=== PATIENT | female | born 1970 | race Caucasian/White ===

== ENCOUNTER 2017-07-25 08:22 | Emergency (ER) | payer SELFPAY ==
[~2017-07-25] VITALS: Ht 162.6 cm; Wt 94.2 kg
[~2017-07-25 08:22] MED LIST: INHALER; LORC10TA PO; NABU500T PO
[2017-07-25 08:27] VITALS: BP 165/69; PULSE 88; RESP 16; TEMP 98; O2SAT 96
[2017-07-25] MEDS ORDERED: IBUP200C PO (08:37)
[2017-07-25] MEDS ORDERED: PRED20 PO (08:46)
[2017-07-25] MEDS ORDERED: AMOX500T PO (08:46)
--- NOTE | 2017-07-25 08:46 | PD ---
HPI Chief Complaint: Cold / Flu Symptoms Time Seen by Provider: 08:34 Travel History International Travel<30 days: No Contact w/Intl Traveler<30days: No Traveled to known affect area: No History of Present Illness HPI 46-year-old female complains of sore throat, hoarseness, productive cough. Patient states that the symptoms started about 2 weeks ago. Patient states that she losing her voice intermittently for the past 2 weeks. Patient states that the voice loss is worse for the past several days. Patient denies any headache. Patient denies any chest pain or shortness of breath. Patient has history of asthma and has been using inhaler and nebulizer at home. Patient is a smoker. Patient states that coughing is intermittent and productive. Patient denies abdominal pain. Patient denies any nausea vomiting diarrhea. PFSH Past Medical History Medical History: Denies Significant Hx Asthma: Yes Diminished Hearing: No Influenza Vaccination: No ?: Not Menopausal: Yes Past Surgical History Surgical History: No Previous Surgery Social History Alcohol Use: No Tobacco Use: Yes (/2 PPD) Substance Use: No Allergies-Medications (Allergen,Severity, Reaction): Coded Allergies: No Known Allergies (Verified Adverse Reaction, Unknown, 07/25/17) Reported Meds & Prescriptions Reported Meds & Active Scripts Active Reported Ibuprofen 200 Mg Cap 200 Mg PO Q6H PRN Review of Systems General / Constitutional: No: Fever Eyes: No: Visual changes HENT: Positive: Sore Throat, No: Headaches Cardiovascular: No: Chest Pain or Discomfort Respiratory: Positive: Cough, No: Shortness of Breath Gastrointestinal: No: Abdominal Pain Genitourinary: No: Dysuria Musculoskeletal: No: Pain Skin: No Rash Neurologic: No: Weakness Psychiatric: No: Depression Endocrine: No: Polydipsia Hematologic/Lymphatic: No: Easy Bruising Physical Exam Narrative GENERAL: Well-nourished, well-developed patient. SKIN: Focused skin assessment warm/dry. HEAD: Normocephalic. EYES: No scleral icterus. No injection or drainage. TM: Clear. Throat: Mild erythematous. NECK: Supple, trachea midline. No JVD . Patient has mild anterior cervical lymphadenopathy. No mass noted. CARDIOVASCULAR: Regular rate and rhythm without murmurs, gallops, or rubs. RESPIRATORY: Breath sounds equal bilaterally. No accessory muscle use. Patient has mild expiratory wheezes bilaterally. No rhonchi. GASTROINTESTINAL: Abdomen soft, non-tender, nondistended. MUSCULOSKELETAL: No cyanosis, or edema. BACK: Nontender without obvious deformity. No CVA tenderness. Data Data Last Documented VS Vital Signs Date Time Temp Pulse Resp B/P (MAP) Pulse Ox O2 Delivery O2 Flow Rate FiO2 07/25/17 08:27 98.0 88 16 165/69 (101) 96 MDM Medical Decision Making Medical Screen Exam Complete: Yes Emergency Medical Condition: Yes Differential Diagnosis Differential diagnosis including pharyngitis, bronchitis, pneumonia, laryngitis. Narrative Course 46-year-old female with hoarseness, sore throat, productive cough. Diagnosis Primary Impression: Bronchitis Additional Impressions: Pharyngitis Qualified Codes: J02.9 - Acute pharyngitis, unspecified Laryngitis Patient Instructions: General Instructions Med/Other Pt SpecificInfo: Prescription(s) given Scripts Prednisone (Prednisone) 20 Mg Tab 20 MG PO BID, #10 TAB 0 Refills Prov: Bolivar Maldonado MD 07/25/17 Amoxicillin (Amoxicillin) 500 Mg Tab 500 MG PO TID for Infection, #30 TAB 0 Refills Prov: Bolivar Maldonado MD 07/25/17 Disposition: 01 DISCHARGE HOME Condition: Stable Bolivar Maldonado MD Jul 25, 2017 08:46
== END 2017-07-25 08:56 | disposition home or self-care (01) ==
LOC: PHED 08:22
DX: J40 Bronchitis, not specified as acute or chronic (principal); J02.9 Acute pharyngitis, unspecified; J04.0 Acute laryngitis; J45.909 Unspecified asthma, uncomplicated; F17.210 Nicotine dependence, cigarettes, uncomplicated
CPT/HCPCS: 99283

== ENCOUNTER 2017-09-08 11:02 | Emergency (ER) | payer SELFPAY ==
[~2017-09-08] VITALS: Ht 162.6 cm; Wt 93.0 kg
[~2017-09-08 11:02] MED LIST changes: +AMOX500T PO; +IBUP200C PO; -INHALER; -LORC10TA PO; -NABU500T PO; +PRED20 PO
[2017-09-08 11:05] VITALS: BP 161/72; PULSE 88; RESP 16; TEMP 98.1; O2SAT 95
[2017-09-08] MEDS ORDERED: ALBU0.63 NEB (11:19)
[2017-09-08] MEDS ORDERED: KETOROLAC TROMETHAMINE 60 MG/2 ML (IM) VIAL IM ONE (11:30)
--- NOTE | 2017-09-08 11:30 | PD ---
HPI Chief Complaint: Abdominal Pain Time Seen by Provider: 11:29 Travel History International Travel<30 days: No Contact w/Intl Traveler<30days: No Traveled to known affect area: No History of Present Illness HPI Patient is a 46-year-old female presents emergency department for evaluation of swelling to the right side of her umbilicus and some mild abdominal pain. No nausea vomiting diarrhea blood in the stool or melena. Patient states she has never noticed this bump before. Has a history of BTL which was performed laparoscopically and states that her incision is right there. States symptoms are mild, associated signs symptoms as above, duration is a week, context as above. PFSH Past Medical History Asthma: Yes Diminished Hearing: No Influenza Vaccination: No ?: Not LMP: NATE Menopausal: Yes Social History Alcohol Use: No Tobacco Use: Yes (06/05 PPD) Substance Use: No Allergies-Medications (Allergen,Severity, Reaction): Coded Allergies: No Known Allergies (Verified Adverse Reaction, Unknown, 09/08/17) Reported Meds & Prescriptions Reported Meds & Active Scripts Active Reported Albuterol Neb (Albuterol Sulfate) 0.63 Mg/3 Ml Neb 0.63 Mg NEB TID NEB PRN Review of Systems Except as stated in HPI: all other systems reviewed are Neg Physical Exam Narrative GENERAL: Well-developed morbidly obese female in no obvious distress peer SKIN: Focused skin assessment warm/dry. HEAD: Atraumatic. Normocephalic. EYES: Pupils equal and round. No scleral icterus. No injection or drainage. ENT: No nasal bleeding or discharge. Mucous membranes pink and moist. NECK: Trachea midline. No JVD. CARDIOVASCULAR: Regular rate and rhythm. No murmur appreciated. RESPIRATORY: No accessory muscle use. Clear to auscultation. Breath sounds equal bilaterally. GASTROINTESTINAL: Abdomen soft, non-tender, nondistended. There is a small hernia to the right of the umbilicus, easily reduced, really only is present when the patient coughs or bears down. There is no overlying erythema, otherwise her abdomen is completely benign. There is a well-healed surgical incision at this site. Hepatic and splenic margins not palpable. MUSCULOSKELETAL: No obvious deformities. No clubbing. No cyanosis. No edema. NEUROLOGICAL: Awake and alert. No obvious cranial nerve deficits. Motor grossly within normal limits. Normal speech. PSYCHIATRIC: Appropriate mood and affect; insight and judgment normal. Data Data Last Documented VS Vital Signs Date Time Temp Pulse Resp B/P (MAP) Pulse Ox O2 Delivery O2 Flow Rate FiO2 09/08/17 11:05 98.1 88 16 161/72 (101) 95 Orders Orders Urinalysis - C+S If Indicated (09/08/17 11:19) Ed Urine Pregnancytest Poc (09/08/17 11:19) Ketorolac Inj (Toradol Inj) (09/08/17 11:30) Mandatory Outpatient Referral (09/08/17 11:48) Ed Discharge Order (09/08/17 11:48) Labs Laboratory Tests Test 09/08/17 11:25 Urine Collection Type CLEAN CATCH Urine Color YELLOW Urine Turbidity CLEAR Urine pH 6.5 Urine Specific [place] LESS/EQUAL 1.005 Urine Protein NEG mg/dL Urine Glucose (UA) NEG mg/dL Urine Ketones NEG mg/dL Urine Occult Blood TRACE Urine Nitrite NEG Urine Bilirubin NEG Urine Urobilinogen 0.2 MG/DL Urine Leukocyte Esterase NEG Urine RBC 0-3 /hpf Urine WBC 0-2 /hpf Urine Squamous Epithelial Cells 6-8 /hpf Microscopic Urinalysis Comment CULT NOT INDICATED Urine Collection Time 11:25 [facility] Medical Decision Making Medical Screen Exam Complete: Yes Emergency Medical Condition: Yes Differential Diagnosis Incisional hernia, umbilical hernia, entrapment highly unlikely, strangulation highly unlikely Narrative Course Patient room to the emergency department, has a completely benign abdomen and no abdominal symptoms such as nausea vomiting or diarrhea. Patient's pain is well localized to the hernia site and is really minimal. The hernia is easily reduced. The patient states she was not going to come in anyways but her friend insisted that she have it checked out. The patient is reassured, discussed signs symptoms of incarcerated or strangulated hernia and that this should prompt emergent return to the ER, she had outpatient referral placed to general surgery. She is stable for discharge per Diagnosis Primary Impression: Umbilical hernia Qualified Codes: K42.9 - Umbilical hernia without obstruction or gangrene Referrals: Bryan Guallpa MD Patient Instructions: General Instructions, Umbilical Hernia (DC) Disposition: 01 DISCHARGE HOME Condition: Stable Trevon Martinez MD Sep 08, 2017 11:30
[2017-09-08 11:34] LABS: BILIRUBIN, URINE NEG (NEG); BLOOD, URINE TRACE (NEG); GLUCOSE,URINE NEG (NEG); KETONE, URINE NEG (NEG); NITRITE,URINE NEG (NEG); PH, URINE 6.5 (5.0-8.5); URINE COLOR YELLOW (YELLW/STRAW); URINE LEUKOCYTE ESTERASE NEG (NEG)
[2017-09-08 11:41] LABS: RBC, URINE 0-3 /hpf (0-3); WBC, URINE 0-2 /hpf (0-5)
== END 2017-09-08 11:57 | disposition home or self-care (01) ==
LOC: PHED 11:02
DX: K42.9 Umbilical hernia without obstruction or gangrene (principal); J45.909 Unspecified asthma, uncomplicated; F17.210 Nicotine dependence, cigarettes, uncomplicated
CPT/HCPCS: 81001; 84703; 96372; 99283; J1885

== ENCOUNTER 2017-09-19 11:00 | Inpatient (IN) | payer SELFPAY ==
[2017-09-19] VITALS (12 sets, daily range): BP systolic 110–122; BP diastolic 51–62; PULSE 77–95; RESP 16–20; TEMP 97.1–98.3; O2SAT 88–96
[~2017-09-19] VITALS: Ht 162.6 cm; Wt 99.8 kg
[~2017-09-19 11:00] MED LIST changes: +ALBU0.63 NEB; -AMOX500T PO; -IBUP200C PO; -PRED20 PO
[2017-09-19] MEDS ORDERED: SODIUM CHLOR 0.9% 1000 ML INJ 1,000 ML IV SCH (11:17)
--- NOTE | 2017-09-19 11:21 | PD ---
HPI Chief Complaint: Abdominal Pain Time Seen by Provider: 11:12 Travel History International Travel<30 days: No Contact w/Intl Traveler<30days: No Traveled to known affect area: No History of Present Illness HPI 47-year-old female with history of asthma, one pack per day smoker, here for evaluation of abdominal pain, nausea, vomiting, and constipation. The patient was seen in the emergency department on 09/08/17 and diagnosed with a reproducible umbilical hernia. The patient reports history of bilateral tubal ligation about 20 years ago. No other abdominal surgeries. She has not had any vomiting today, however states that she has not had anything to eat today. Emesis consists of whatever she eats. Pain in her abdomen is mainly over her umbilical area, described as sharp, 7 out of 10, worse with movements and bending forward. She has not had a bowel movement in 3 days. No fevers. PFSH Past Medical History Asthma: Yes Diminished Hearing: No ?: Not Menopausal: Yes Social History Alcohol Use: No Tobacco Use: Yes (1/2 PPD) Substance Use: No Allergies-Medications (Allergen,Severity, Reaction): Coded Allergies: No Known Allergies (Verified Adverse Reaction, Unknown, 09/19/17) Reported Meds & Prescriptions Reported Meds & Active Scripts Active Reported Albuterol Neb (Albuterol Sulfate) 0.63 Mg/3 Ml Neb 0.63 Mg NEB TID NEB PRN Review of Systems Except as stated in HPI: all other systems reviewed are Neg Physical Exam Narrative GENERAL: Well-developed, well-nourished, no apparent distress. SKIN: Focused skin assessment warm/dry. HEAD: Atraumatic. Normocephalic. EYES: Pupils equal and round. No scleral icterus. No injection or drainage. ENT: No nasal bleeding or discharge. Mucous membranes pink and moist. NECK: Trachea midline. No JVD. CARDIOVASCULAR: Regular rate and rhythm. RESPIRATORY: No accessory muscle use. Slight inspiratory and expiratory wheezes bilaterally. Breath sounds equal bilaterally. GASTROINTESTINAL: Abdomen soft, nondistended. Moderate diffuse tenderness without peritoneal signs. Normal bowel sounds. Small/reducible umbilical hernia. Horizontal surgical scar that is well-healed inferior to the umbilicus. MUSCULOSKELETAL: No obvious deformities. No clubbing. No cyanosis. No edema. NEUROLOGICAL: Awake and alert. No obvious cranial nerve deficits. Motor grossly within normal limits. Normal speech. PSYCHIATRIC: Appropriate mood and affect; insight and judgment normal. Data Data Last Documented VS Vital Signs Date Time Temp Pulse Resp B/P (MAP) Pulse Ox O2 Delivery O2 Flow Rate FiO2 09/19/17 13:24 77 20 122/62 (82) 94 Nasal Cannula 2.00 09/19/17 11:03 98.0 Orders Orders Complete Blood Count With Diff (09/19/17 11:17) Comprehensive Metabolic Panel (09/19/17 11:17) Lipase (09/19/17 11:17) Prothrombin Time / Inr (Pt) (09/19/17 11:17) Act Partial Throm Time (Ptt) (09/19/17 11:17) Urinalysis - C+S If Indicated (09/19/17 11:17) Ct Abd/Pel W Iv Contrast(Rout) (09/19/17 11:17) Iv Access Insert/Monitor (09/19/17 11:17) Ecg Monitoring (09/19/17 11:17) Oximetry (09/19/17 11:17) Ondansetron Inj (Zofran Inj) (09/19/17 11:30) Sodium Chlor 0.9% 1000 Ml Inj (Ns 1000 M (09/19/17 11:17) Sodium Chloride 0.9% Flush (Ns Flush) (09/19/17 11:30) Diatrizoate Liq ( Gastro[place] Liq) (09/19/17 11:30) Morphine Inj (Morphine Inj) (09/19/17 11:30) Albuterol-Ipratropium Neb (Duoneb Neb) (09/19/17 11:30) Oral Contrast - Adult (09/19/17 11:24) Ed Urine Pregnancytest Poc (09/19/17 11:41) I-Stat Profile (09/19/17 11:35) Iohexol 350 Inj (Omnipaque 350 Inj) (09/19/17 13:08) Chest, Single Ap (09/19/17 ) Potassium Chlor 20 Meq Premix (Kcl 20 Me (09/19/17 14:15) Potassium Chloride (Kcl) (09/19/17 14:15) Methylprednisolone So Succ Inj (Solumedr (09/19/17 14:15) Blood Culture (09/19/17 14:05) Ceftriaxone Inj (Rocephin Inj) (09/19/17 14:15) Azithromycin Inj (Zithromax Inj) (09/19/17 14:15) Albuterol-Ipratropium Neb (Duoneb Neb) (09/19/17 14:15) Labs Laboratory Tests Test 09/19/17 11:35 09/19/17 11:45 White Blood Count 9.8 TH/MM3 Red Blood Count 4.87 MIL/MM3 Hemoglobin 14.5 GM/DL Bedside Hemoglobin G/DL Hematocrit 43.5 % Bedside Hematocrit % Mean Corpuscular Volume 89.3 FL Mean Corpuscular Hemoglobin 29.7 PG Mean Corpuscular Hemoglobin Concent 33.3 % Red Cell Distribution Width 14.1 % Platelet Count 384 TH/MM3 Mean Platelet Volume 7.4 FL Neutrophils (%) (Auto) 64.9 % Lymphocytes (%) (Auto) 26.2 % Monocytes (%) (Auto) 3.5 % Eosinophils (%) (Auto) 3.4 % Basophils (%) (Auto) 2.0 % Neutrophils # (Auto) 6.4 TH/MM3 Lymphocytes # (Auto) 2.6 TH/MM3 Monocytes # (Auto) 0.3 TH/MM3 Eosinophils # (Auto) 0.3 TH/MM3 Basophils # (Auto) 0.2 TH/MM3 CBC Comment DIFF FINAL Differential Comment Prothrombin Time 9.8 SEC Prothromb Time International Ratio 1.0 RATIO Activated Partial Thromboplast Time 24.8 SEC Bedside Sodium 138 MMOL/L Blood Urea Nitrogen 3 MG/DL Creatinine 0.79 MG/DL Random Glucose 120 MG/DL Total Protein 7.1 GM/DL Albumin 3.1 GM/DL Calcium Level 8.9 MG/DL Alkaline Phosphatase 108 U/L Aspartate Amino Transf (AST/SGOT) 143 U/L Alanine Aminotransferase (ALT/SGPT) 74 U/L Total Bilirubin 0.5 MG/DL Sodium Level 140 MEQ/L Potassium Level 1.6 MEQ/L Chloride Level 89 MEQ/L Carbon Dioxide Level 44.4 MEQ/L Bedside Potassium LESS THAN 2.0 MMOL/L Bedside Chloride 81 MMOL/L Anion Gap 7 MEQ/L Bedside Blood Urea Nitrogen LESS THAN 3 MG/DL Bedside Creatinine 0.8 MG/DL Estimat Glomerular Filtration Rate 78 ML/MIN Bedside Glucose 127 MG/DL Lipase 223 U/L Urine Collection Type CLEAN CATCH Urine Color YELLOW Urine Turbidity CLEAR Urine pH 6.5 Urine Specific [place] 1.015 Urine Protein TRACE mg/dL Urine Glucose (UA) NEG mg/dL Urine Ketones NEG mg/dL Urine Occult Blood SMALL Urine Nitrite NEG Urine Bilirubin NEG Urine Urobilinogen 0.2 MG/DL Urine Leukocyte Esterase NEG Urine RBC 4-9 /hpf Urine WBC 0-2 /hpf Urine Squamous Epithelial Cells 0-5 /hpf Microscopic Urinalysis Comment CULT NOT INDICATED Urine Collection Time 11:45 [facility] Medical Decision Making Medical Screen Exam Complete: Yes Emergency Medical Condition: Yes Medical Record Reviewed: Yes Differential Diagnosis Umbilical hernia: Strangulated versus incarcerated versus reducible, bowel obstruction, constipation, cholelithiasis, cholecystitis, pancreatitis, appendicitis Narrative Course Initial vital signs show heart rate 83, blood pressure 120/62, pulse ox 95% on room air, oral temperature 98F. Patient had minimal inspiratory and expiratory wheezes bilaterally on arrival to the emergency department. She was provided 1 DuoNeb treatment and wheezes have resolved. Patient reports history of asthma as well as smoking. While in the emergency department her O2 saturation dropped to 88% on room air. She has been having a nonproductive cough and was diagnosed with bronchitis about 2 months ago. She was placed on amoxicillin and prednisone at that time. CBC: WBC 9.8, hemoglobin 14.5, hematocrit 43.5, platelets 384. POC BMP shows potassium less than 2, chloride 81, BUN 3, creatinine 0.8, glucose 127. UA shows small occult blood, 4-9 RBCs, not suggestive of UTI. CT abdomen pelvis: CONCLUSION: Marked fatty replacement to the liver. Probable 2.3 cm right adrenal adenoma. Minimal airspace disease left lung disease anteriorly left lung. Patient was made aware of all findings and was provided a copy of her CT abdomen pelvis report. Umbilical hernia is easily reducible. Potassium on CMP is 1.6. Bicarb is 44.4 AST is 143, ALT is 74. Lipase is 223. The patient will be given oral and IV potassium. She will be started on IV Rocephin and IV azithromycin for left lower lobe pneumonia. Although her lungs are now clear after 1 DuoNeb treatment, her O2 saturation has worsened from 95% on room air on arrival to the emergency department to 88% on room air. She is not in any respiratory distress. She will be written for 2 more DuoNeb treatments as well as 125 mg of IV Solu-Medrol. She will be admitted for further treatment and evaluation. Case discussed with hospitalist nurse practitioner Glenna. The patient will be admitted to the hospitalist service under Dr. Garcia. Diagnosis Primary Impression: Pneumonia Qualified Codes: J18.1 - Lobar pneumonia, unspecified organism Additional Impressions: Hypokalemia Asthma exacerbation Qualified Codes: J45.901 - Unspecified asthma with (acute) exacerbation Umbilical hernia Qualified Codes: K42.9 - Umbilical hernia without obstruction or gangrene Adrenal mass, right Fatty liver Microscopic hematuria Frank Villegas MD Sep 19, 2017 11:21
[2017-09-19] MEDS ORDERED: MORPHINE SULFATE 2 MG/ML SYRINGE IV PUSH ONE (11:30)
[2017-09-19] MEDS ORDERED: SODIUM CHLORIDE 0.9% FLUSH 10 ML FLUSH IV FLUSH PRN ×2 (11:30→14:15)
[2017-09-19] MEDS ORDERED: RESP: ALBUTEROL 2.5 MG/IPRATROPIUM 0.5 MG NEB (SCH) INH ONE (11:30)
[2017-09-19] MEDS ORDERED: DIATRIZOATE MEGLUM/DIATRIZOATE SOD 9 ML CUP PO ONE (11:30)
[2017-09-19] MEDS ORDERED: ONDANSETRON HCL 4 MG/2 ML VIAL IVP ONE (11:30)
[2017-09-19 11:43] LABS: AUTOMATED NEUTROPHIL # 6.4 TH/MM3 (1.8-7.7); BASOPHIL # 0.2 TH/MM3 (0-0.2); EOSINOPHIL # 0.3 TH/MM3 (0-0.4); EOSINOPHIL % 3.4 % (0.0-4.0); HEMATOCRIT 43.5 % (35.0-46.0); HEMOGLOBIN 14.5 GM/DL (11.6-15.3); LYMPH % 26.2 % (9.0-44.0); LYMPHOCYTE # 2.6 TH/MM3 (1.0-4.8); MEAN CELL VOLUME 89.3 FL (80.0-100.0); MEAN CORPUSCULAR HEMOGLOBIN 29.7 PG (27.0-34.0); MEAN CORPUSCULAR HGB CONC 33.3 % (32.0-36.0); MEAN PLATELET VOLUME 7.4 FL (7.0-11.0); MONO % 3.5 % (0.0-8.0); MONOCYTE # 0.3 TH/MM3 (0-0.9); NEUT % 64.9 % (16.0-70.0); PLATELET COUNT 384 TH/MM3 (150-450); RED BLOOD COUNT 4.87 MIL/MM3 (4.00-5.30); RED CELL DISTRIBUTION WIDTH 14.1 % (11.6-17.2); WHITE BLOOD COUNT 9.8 TH/MM3 (4.0-11.0)
[2017-09-19 12:10] LABS: BILIRUBIN, URINE NEG (NEG); BLOOD, URINE SMALL (NEG); GLUCOSE,URINE NEG (NEG); KETONE, URINE NEG (NEG); NITRITE,URINE NEG (NEG); PH, URINE 6.5 (5.0-8.5); URINE COLOR YELLOW (YELLW/STRAW); URINE LEUKOCYTE ESTERASE NEG (NEG)
[2017-09-19 12:14] LABS: PROTHROMBIN TIME - PATIENT 9.8 SEC (9.8-11.6)
[2017-09-19 12:47] LABS: WBC, URINE 0-2 /hpf (0-5)
[2017-09-19 12:48] LABS: SQUAMOUS EPITHELIAL CELL URINE 0-5 /hpf (0-5)
[2017-09-19] MEDS ORDERED: IOHEXOL 350 MG/ML 10 ML VIAL (for RAD DIAG) IVCONTRAST ONE (13:08)
--- NOTE | 2017-09-19 13:29 | RADRPT ---
EXAM DATE/TIME: 09/19/2017 13:01 [facility] COMPARISON: No previous studies available for comparison. INDICATIONS : 00 IV CONTRAST: 90 cc Omnipaque 350 (iohexol) IV ORAL CONTRAST: Prescribed oral contrast ingested. RADIATION DOSE: 20.84 CTDIvol (mGy) MEDICAL HISTORY : Asthma. SURGICAL HISTORY : Tubal ligation. ENCOUNTER: Initial ACUITY: 3 weeks PAIN SCALE: 7/10 LOCATION: Umbilical TECHNIQUE: Volumetric scanning of the abdomen and pelvis was performed. Using automated exposure control and ad justment of the mA and/or kV according to patient size, radiation dose was kept as low as reasonably achievable to obtain optimal diagnostic quality images. DICOM format image data is available electro nically for review and comparison. FINDINGS: LOWER LUNGS: Minimal airspace disease anteriorly in the left lung. LIVER: Moderate fatty replacement to the liver. Spleen and pancreas are unremarkable. KIDNEYS: Normal in size and shape. There is no mass, stone or hydronephrosis. ADRENAL GLANDS: Small low-density 2.3 cm right adrenal mass probably adenoma.. VASCULAR: There is no aortic aneurysm. BOWEL/MESENTERY: The stomach, small bowel, and colon demonstrate no acute abnormality. There is no free intraperitone al air or fluid. ABDOMINAL WALL: Small midline umbilical hernia RETROPERITONEUM: There is no lymphadenopathy. BLADDER: No wall thickening or mass. REPRODUCTIVE: Within normal limits. INGUINAL: There is no lymphadenopathy or hernia. MUSCULOSKELETAL: Within normal limits for patient age. CONCLUSION: Marked fatty replacement to the liver. Probable 2.3 cm right adrenal adenoma. Minimal airspace disease left lung disease anteriorly left lung. Nito Puga MD FACR on September 19, 2017 at 13:18 Board Certified Radiologist. This report was verified electronically.
[2017-09-19 14:02] LABS: ALBUMIN 3.1 GM/DL (3.4-5.0); ALKALINE PHOSPHATASE 108 U/L (45-117); ALT (GPT) 74 U/L (10-53); AST (GOT) 143 U/L (15-37); BICARBONATE 44.4 MEQ/L (21.0-32.0); BLOOD UREA NITROGEN 3 MG/DL (7-18); CALCIUM 8.9 MG/DL (8.5-10.1); CHLORIDE 89 MEQ/L (98-107); CREATININE 0.79 MG/DL (0.50-1.00); GLOMERULAR FILTRATION RATE 78 ML/MIN (>89); GLUCOSE,RANDOM 120 MG/DL (74-106); SODIUM (NA) 140 MEQ/L (136-145); TOTAL BILIRUBIN ADULT 0.5 MG/DL (0.2-1.0); TOTAL PROTEIN 7.1 GM/DL (6.4-8.2)
--- NOTE | 2017-09-19 14:07 | RADRPT ---
EXAM DATE/TIME: 09/19/2017 13:26 [facility] COMPARISON: No previous studies available for comparison. INDICATIONS : Vomiting, hernia, epigastric pain. MEDICAL HISTORY : Asthma. Radaiton therapy. Cervical cancer. Smoker. SURGICAL HISTORY : Tubal ligation. Leep procedure. ENCOUNTER: Initial ACUITY: 1 day PAIN SCORE: 5/10 LOCATION: epigastric area FINDINGS: Minimal parenchymal changes left base. Right lung clear. The heart and pulmonary vascularity are nor mal. The portion of the bony skeleton visualized is unremarkable. CONCLUSION: Minimal parenchymal changes left base. Nito Puga MD FACR on September 19, 2017 at 14:03 Board Certified Radiologist. This report was verified electronically.
[2017-09-19] MEDS: RESP: ALBUTEROL 2.5 MG/IPRATROPIUM 0.5 MG NEB (SCH) INH (14:11)
[2017-09-19] MEDS ORDERED: POTASSIUM CHLORIDE 20 MEQ CONTROLLED RELEASE TAB PO ONE (14:15)
[2017-09-19] MEDS ORDERED: ACETAMINOPHEN 325 MG TAB PO PRN (14:15)
[2017-09-19] MEDS ORDERED: SENNOSIDES 8.6 MG TAB PO PRN (14:15)
[2017-09-19] MEDS ORDERED: NALOXONE HCL 0.4 MG/ML AMP IV PUSH PRN (14:15)
[2017-09-19] MEDS ORDERED: BISACODYL 10 MG SUPP RECTAL PRN (14:15)
[2017-09-19] MEDS ORDERED: MAGNESIUM HYDROXIDE SUSP 30 ML CUP PO PRN (14:15)
[2017-09-19] MEDS ORDERED: AZITHROMYCIN INJ 500 MG in SODIUM CHLOR 0.9% 250 ML INJ 250 ML IV ONE (14:15)
[2017-09-19] MEDS ORDERED: cefTRIAXone INJ 1,000 MG in SODIUM CHLORIDE 0.9% INJ 100 ML IV ONE (14:15)
[2017-09-19] MEDS ORDERED: methylPREDNISolone SOD SUCC 125 MG/2 ML VIAL IV PUSH ONE (14:15)
[2017-09-19] MEDS: NS + KCL 20 MEQ INJ 1,000 ML IV SCH (14:30)
--- NOTE | 2017-09-19 14:58 | HHI.HP ---
[facility] Service [facility] Primary Care Physician eBau Major D.O. Admission Diagnosis Pneumonia, hypokalemia, reducible umbilical hernia Diagnoses: (1) Asthma exacerbation (2) Adrenal mass, right (3) Pneumonia (4) Umbilical hernia Chief Complaint: Nausea vomiting Abdominal pain Dyspnea Travel History International Travel<30 Days: No Contact w/Intl Traveler <30 Da: No Traveled to Known Affected Are: No History of Present Illness This is a 47-year-old female patient with a known medical history of asthma who presented to the ED for complaints of abdominal pain, nausea, vomiting constipation. Patient states that she has had one day of vomiting and over the course of the last week she has been able to eat with poor appetite and nausea every time she eats. Abdominal pain is in the umbilical area, rated a 3 out of 4 on pain scale and worsens with movement. Patient does state she has not had a bowel movement in 3 days. Her baseline is having a bowel movement every day. Patient also states she has had associated shortness of breath and fatigue over the past week. She does have duo nebs at home, states she has been increasing the use of these every day up to 3-4 times per day. Denies any recent fever, chills, cough, headache, diarrhea or dysuria. Patient also states she is recognized a bulge at her umbilical area with pain in the same area. At the time of assessment patient is examined, umbilical hernia is reducible with apparent pain on palpation. Denies any nausea or vomiting at the current time. Abdominal/pelvis CT showing probable 2.3 cm right adrenal adenoma. With minimal airspace disease left lung disease anterior left lung. Potassium 1.6 on presentation. UA negative. CBC essentially unremarkable. Review of Systems Constitutional: COMPLAINS OF: Fatigue, DENIES: Fever, Chills Eyes: DENIES: Blurred vision, Diplopia Respiratory: COMPLAINS OF: Shortness of breath, DENIES: Cough, Sputum production Cardiovascular: DENIES: Chest pain, Palpitations Gastrointestinal: COMPLAINS OF: Abdominal pain, Constipation, Nausea, Vomiting , DENIES: Black stools, Bloody stools, Diarrhea Musculoskeletal: DENIES: Joint pain Immunologic/allergic: DENIES: Eczema Psychiatric: COMPLAINS OF: Anxiety Except as stated in HPI: all other systems reviewed are Neg Past Family Social History Past Medical History Asthma Tobacco abuse Past Surgical History Tubal ligation 20 years ago Reported Medications Active Reported Albuterol Neb (Albuterol Sulfate) 0.63 Mg/3 Ml Neb 0.63 Mg NEB TID NEB PRN Allergies: Coded Allergies: No Known Allergies (Verified Adverse Reaction, Unknown, 09/19/17) Active Ordered Medications Current Medications Medications (Trade) Dose Ordered Sig/Gema Route Start Time Stop Time Status Last Admin Potassium Chloride 100 ml @ 50 mls/hr Q2H IV 09/19/17 14:15 09/19/17 18:14 (NS Flush) 2 ml UNSCH PRN IV FLUSH 09/19/17 14:15 (NS Flush) 2 ml BID IV FLUSH 09/19/17 21:00 (Tylenol) 650 mg Q4H PRN PO 09/19/17 14:15 (Zofran Inj) 4 mg Q6H PRN IVP 09/19/17 14:15 (Narcan Inj) 0.4 mg UNSCH PRN IV PUSH 09/19/17 14:15 (Brenda-Colace) 1 tab BID PO 09/19/17 21:00 (Milk Of Magnesia Liq) 30 ml Q12H PRN PO 09/19/17 14:15 (Senokot) 17.2 mg Q12H PRN PO 09/19/17 14:15 (Dulcolax Supp) 10 mg DAILY PRN RECTAL 09/19/17 14:15 Potassium Chloride/Sodium Chloride 1,000 ml @ 84 mls/hr [id number] IV 09/19/17 14:30 Family History Mother is significant for asthma. Social History Does admit to smoking half pack per day cigarettes for many years since her teen years. Denies any alcohol or illicit drug use. Physical Exam Vital Signs Vital Signs Date Time Temp Pulse Resp B/P (MAP) Pulse Ox O2 Delivery O2 Flow Rate FiO2 09/19/17 14:21 93 Nasal Cannula 2.00 09/19/17 13:30 16 09/19/17 13:24 77 20 122/62 (82) 94 Nasal Cannula 2.00 09/19/17 13:15 88 Room Air 09/19/17 12:56 78 16 116/51 (72) 95 Nasal Cannula 2.00 09/19/17 12:32 16 09/19/17 11:52 16 96 Room Air 09/19/17 11:35 16 09/19/17 11:03 98.0 83 18 120/62 (81) 95 Physical Exam GENERAL: Well-developed, well-nourished patient in NAD. On supplemental O2. SKIN: Warm and dry. No rash. HEAD: Normocephalic. Atraumatic. EYES: Pupils equal and round. No scleral icterus. No injection or drainage. ENT: No nasal bleeding or discharge. Mucous membranes pink and moist. NECK: Supple. Trachea midline. CARDIOVASCULAR: Regular rate and rhythm. S1, S2 noted. No murmur appreciated. RESPIRATORY: No accessory muscle use. Scattered expiratory wheezing. Breath sounds equal bilaterally. GASTROINTESTINAL: Abdomen soft, non-tender, nondistended. Normoactive bowel sounds x4. Umbilical reducible hernia. MUSCULOSKELETAL: No obvious deformities. Extremities without clubbing, cyanosis , or edema. NEUROLOGICAL: Awake and alert. No obvious cranial nerve deficits. Motor grossly within normal limits. 5/5 muscle strength in bilateral upper and lower extremities. Normal speech. PSYCHIATRIC: Appropriate mood and affect; insight and judgment normal. Laboratory Laboratory Tests Test 09/19/17 11:35 09/19/17 11:45 White Blood Count 9.8 Red Blood Count 4.87 Hemoglobin 14.5 Bedside Hemoglobin Hematocrit 43.5 Bedside Hematocrit Mean Corpuscular Volume 89.3 Mean Corpuscular Hemoglobin 29.7 Mean Corpuscular Hemoglobin Concent 33.3 Red Cell Distribution Width 14.1 Platelet Count 384 Mean Platelet Volume 7.4 Neutrophils (%) (Auto) 64.9 Lymphocytes (%) (Auto) 26.2 Monocytes (%) (Auto) 3.5 Eosinophils (%) (Auto) 3.4 Basophils (%) (Auto) 2.0 Neutrophils # (Auto) 6.4 Lymphocytes # (Auto) 2.6 Monocytes # (Auto) 0.3 Eosinophils # (Auto) 0.3 Basophils # (Auto) 0.2 CBC Comment DIFF FINAL Differential Comment Prothrombin Time 9.8 Prothromb Time International Ratio 1.0 Activated Partial Thromboplast Time 24.8 Bedside Sodium 138 Blood Urea Nitrogen 3 Creatinine 0.79 Random Glucose 120 Total Protein 7.1 Albumin 3.1 Calcium Level 8.9 Alkaline Phosphatase 108 Aspartate Amino Transf (AST/SGOT) 143 Alanine Aminotransferase (ALT/SGPT) 74 Total Bilirubin 0.5 Sodium Level 140 Potassium Level 1.6 Chloride Level 89 Carbon Dioxide Level 44.4 Bedside Potassium LESS THAN 2.0 Bedside Chloride 81 Anion Gap 7 Bedside Blood Urea Nitrogen LESS THAN 3 Bedside Creatinine 0.8 Estimat Glomerular Filtration Rate 78 Bedside Glucose 127 Lipase 223 Urine Collection Type CLEAN CATCH Urine Color YELLOW Urine Turbidity CLEAR Urine pH 6.5 Urine Specific [place] 1.015 Urine Protein TRACE Urine Glucose (UA) NEG Urine Ketones NEG Urine Occult Blood SMALL Urine Nitrite NEG Urine Bilirubin NEG Urine Urobilinogen 0.2 Urine Leukocyte Esterase NEG Urine RBC 4-9 Urine WBC 0-2 Urine Squamous Epithelial Cells 0-5 Microscopic Urinalysis Comment CULT NOT INDICATED Urine Collection Time 11:45 Date/Time Source Procedure Growth Status 09/19/17 14:25 Blood Peripheral Aerobic Blood Culture Pending Received 09/19/17 14:25 Blood Peripheral Anaerobic Blood Culture Pending Received Result Diagram: 09/19/17 1135 09/19/17 1135 Imaging Last Impressions Abdomen/Pelvis CT 09/19/17 1117 Signed Impressions: Service Date/Time: Tuesday, September 19, 2017 13:01 - CONCLUSION: Marked fatty replacement to the liver. Probable 2.3 cm right adrenal adenoma. Minimal airspace disease left lung disease anteriorly left lung. Nito Puga MD FACR Chest X-Ray 09/19/17 0000 Signed Impressions: Service Date/Time: Tuesday, September 19, 2017 13:26 - CONCLUSION: Minimal parenchymal changes left base. Nito Puga MD FACR Septic Shock Reassessment Septic shock perfusion: reassessment completed Caprini VTE Risk Assessment Caprini VTE Risk Assessment: No/Low Risk (score <= 1) Caprini Risk Assessment Model Point Value = 1 Point Value = 2 Point Value = 3 Point Value = 5 Age 41-60 Minor surgery BMI > 25 kg/m2 Swollen legs Varicose veins or History of unexplained or recurrent spontaneous Oral contraceptives or hormone replacement Sepsis (< 1 month) Serious lung disease, including pneumonia (< 1 month) Abnormal pulmonary function Acute myocardial infarction Congestive heart failure (< 1 month) History of inflammatory bowel disease Medical patient at bed rest Age 61-74 Arthroscopic surgery Major open surgery (> 45 min) Laparoscopic surgery (> 45 min) Malignancy Confined to bed (> 72 hours) Immobilizing plaster cast Central venous access Age >= 75 History of VTE Family history of VTE Factor V Leiden Prothrombin [id number] Lupus anticoagulant Anticardiolipin antibodies Elevated serum homocysteine Heparin-induced thrombocytopenia Other congenital or acquired thrombophilia Stroke (< 1 month) Elective arthroplasty Hip, pelvis, or leg fracture Acute spinal cord injury (< 1 month) Prophylaxis Regimen Total Risk Factor Score Risk Level Prophylaxis Regimen 0-1 Low Early ambulation 2 Moderate Order ONE of the following: *Sequential Compression Device (SCD) *Heparin 5000 units SQ BID 3-4 Higher Order ONE of the following medications: *Heparin 5000 units SQ TID *Enoxaparin/Lovenox 40 mg SQ daily (WT < 150 kg, CrCl > 30 mL/min) *Enoxaparin/Lovenox 30 mg SQ daily (WT < 150 kg, CrCl > 10-29 mL/min) *Enoxaparin/Lovenox 30 mg SQ BID (WT < 150 kg, CrCl > 30 mL/min) AND/OR *Sequential Compression Device (SCD) 5 or more Highest Order ONE of the following medications: *Heparin 5000 units SQ TID (Preferred with Epidurals) *Enoxaparin/Lovenox 40 mg SQ daily (WT < 150 kg, CrCl > 30 mL/min) *Enoxaparin/Lovenox 30 mg SQ daily (WT < 150 kg, CrCl > 10-29 mL/min) *Enoxaparin/Lovenox 30 mg SQ BID (WT < 150 kg, CrCl > 30 mL/min) AND *Sequential Compression Device (SCD) Assessment and Plan Assessment and Plan This is a 47-year-old female patient with a known medical history of asthma who presented to the ED for complaints of abdominal pain, nausea, vomiting constipation. Acute on chronic asthma in exacerbation with hypoxia requiring supplemental O2 Community acquired pneumonia with above - Chest x-ray reviewed showing minimal parenchymal changes at the left base. CT showing minimal airspace disease left lung disease anterior left lung. - Patient placed on azithromycin and ceftriaxone IV. Will continue. Methylprednisone 125 mg given in ED. Continue scheduled steroids. - Duo nebs scheduled and as needed for wheezing. - Supplemental O2 as needed, patient requiring 2 L nasal cannula at this time. Reducible umbilical hernia With intractable nausea and vomiting and abdominal pain Incidental finding of right adrenal mass -Abdomen/pelvis CT reviewed showing marked fatty replacement of the liver. Probable 2.3 cm right adrenal adenoma. -Pain control, morphine IV available as needed with [place] as needed. Per pain scale. -Zofran as needed for nausea. Severe hypokalemia suspect secondary to nausea vomiting versus dehydration - K 1.6 on presentation. Reported replacement 40mg p.o. and 20 mg IV. Repeat PT at 1999. Monitor BMP. - Will add magnesium level. Replace as needed. Constipation: Continue on regimen. Monitor for response. Transaminitis Fatty liver - Total bili 0.5. Mildly elevated AST and ALT. Continue to monitor. DVT prophylaxis: SCDs. Physician Certification 2 Midnight Certification Type: Admission for Inpatient Services Order for Inpatient Services The services are ordered in accordance with Medicare regulations or non- Medicare payer requirements, as applicable. In the case of services not specified as inpatient-only, they are appropriately provided as inpatient services in accordance with the 2-midnight benchmark. Estimated LOS (days): 3 3 days is the estimated time the patient will need to remain in the hospital, assuming treatment plan goals are met and no additional complications. Post-Hospital Plan: Home Problem Qualifiers (1) Asthma exacerbation: Qualified Codes: J45.901 - Unspecified asthma with (acute) exacerbation (2) Pneumonia: Qualified Codes: J18.1 - Lobar pneumonia, unspecified organism (3) Umbilical hernia: Qualified Codes: K42.9 - Umbilical hernia without obstruction or gangrene Glenna Peters [facility] Sep 19, 2017 14:58
[2017-09-19] MEDS ORDERED: cefTRIAXone INJ 1,000 MG in SODIUM CHLORIDE 0.9% INJ 100 ML IV SCH (15:00)
[2017-09-19] MEDS ORDERED: AZITHROMYCIN INJ 500 MG in SODIUM CHLOR 0.9% 250 ML INJ 250 ML IV SCH (15:00)
[2017-09-19] MEDS: POTASSIUM CHLOR 20 MEQ PREMIX 100 ML IV SCH ×3 (15:49→22:18)
[2017-09-19] MEDS ORDERED: MORPHINE SULFATE 2 MG/ML SYRINGE IV PUSH PRN (16:00)
[2017-09-19] MEDS ORDERED: RESP: ALBUTEROL 2.5 MG/IPRATROPIUM 0.5 MG NEB (PRN) NEB (16:00)
[2017-09-19] MEDS: ACETAMINOPHEN/HYDROcodone 325 MG/5 MG TAB PO PRN ×2 (17:36→22:26)
[2017-09-19] MEDS: methylPREDNISolone SOD SUCC 40 MG/1 ML VIAL IV PUSH SCH (17:37)
[2017-09-19] MEDS: RESP: ALBUTEROL 2.5 MG/IPRATROPIUM 0.5 MG NEB (SCH) NEB (19:36)
[2017-09-19] MEDS: DOCUSATE SODIUM 50 MG/SENNA 8.6 MG TAB PO SCH (21:00)
[2017-09-19 21:03] LABS: ALKALINE PHOSPHATASE 115 U/L (45-117); ALT (GPT) 70 U/L (10-53); AST (GOT) 124 U/L (15-37); BICARBONATE 33.2 MEQ/L (21.0-32.0); BLOOD UREA NITROGEN 4 MG/DL (7-18); CALCIUM 8.2 MG/DL (8.5-10.1); CHLORIDE 92 MEQ/L (98-107); GLOMERULAR FILTRATION RATE 40 ML/MIN (>89); GLUCOSE,RANDOM 383 MG/DL (74-106); SODIUM (NA) 138 MEQ/L (136-145); TOTAL BILIRUBIN ADULT 0.2 MG/DL (0.2-1.0); TOTAL PROTEIN 7.4 GM/DL (6.4-8.2)
[2017-09-19] MEDS: SODIUM CHLORIDE 0.9% FLUSH 10 ML FLUSH IV FLUSH SCH (22:10)
[2017-09-19] MEDS ORDERED: POTASSIUM CHLORIDE 25 MEQ EFFERVESCENT TAB PO ONE (23:00)
[2017-09-20] VITALS (18 sets, daily range): BP systolic 118–149; BP diastolic 50–81; PULSE 82–99; RESP 18–30; TEMP 96.2–98.5; O2SAT 90–95
[2017-09-20] MEDS: methylPREDNISolone SOD SUCC 40 MG/1 ML VIAL IV PUSH SCH ×4 (00:17→17:23)
[2017-09-20] MEDS: POTASSIUM CHLOR 20 MEQ PREMIX 100 ML IV SCH ×4 (02:07→22:17)
[2017-09-20] MEDS: ACETAMINOPHEN/HYDROcodone 325 MG/5 MG TAB PO PRN ×2 (03:06→07:57)
[2017-09-20] MEDS: NS + KCL 20 MEQ INJ 1,000 ML IV SCH ×2 (03:06→18:21)
--- NOTE | 2017-09-20 05:30 | RADRPT ---
EXAM DATE/TIME: 09/20/2017 04:56 [facility] COMPARISON: No previous studies available for comparison. INDICATIONS : Trauma, fall. RADIATION DOSE: 57.01 CTDIvol (mGy) ; Patient motion MEDICAL HISTORY : None SURGICAL HISTORY : None. ENCOUNTER: Initial ACUITY: 1 day PAIN SCALE: 0/10 LOCATION: cranial TECHNIQUE: Multiple contiguous axial images were obtained of the head. Using automated exposure control and adj ustment of the mA and/or kV according to patient size, radiation dose was kept as low as reasonably a chievable to obtain optimal diagnostic quality images. DICOM format image data is available electro nically for review and comparison. FINDINGS: CEREBRUM: The ventricles are normal for age. No evidence of midline shift, mass lesion, hemorrhage or acute in farction. No extra-axial fluid collections are seen. POSTERIOR FOSSA: The cerebellum and brainstem are intact. The 4th ventricle is midline. The cerebellopontine angle i s unremarkable. EXTRACRANIAL: The visualized portion of the orbits is intact. SKULL: The calvaria is intact. No evidence of skull fracture. CONCLUSION: Negative noncontrast head CT. Jean Manzo MD on September 20, 2017 at 5:28 Board Certified Radiologist. This report was verified electronically.
[2017-09-20] MEDS: RESP: ALBUTEROL 2.5 MG/IPRATROPIUM 0.5 MG NEB (SCH) NEB ×3 (07:28→19:16)
[2017-09-20] MEDS: DOCUSATE SODIUM 50 MG/SENNA 8.6 MG TAB PO SCH ×2 (07:57→21:37)
[2017-09-20] MEDS: SODIUM CHLORIDE 0.9% FLUSH 10 ML FLUSH IV FLUSH SCH ×2 (07:58→21:00)
--- NOTE | 2017-09-20 09:29 | HHI.PR ---
Subjective Remarks Follow-up asthma exacerbation and pneumonia and severe hypokalemia. Patient seen and examined, lying in bed with present shortness of breath. On supplemental O2 2 L. There are reports that patient did fall overnight, head CT was done showing no acute events. Patient does state she feels much more weak, unable to get out of bed without weakness. Potassium repeat 1.4 today. Patient transferred to ICU for closer monitoring. No arrhythmias overnight. No chest pain. We will continue to monitor. Objective Vitals Vital Signs Date Time Temp Pulse Resp B/P (MAP) Pulse Ox O2 Delivery O2 Flow Rate FiO2 09/20/17 07:30 91 Nasal Cannula 2.00 09/20/17 05:59 95 20 122/56 (78) 92 09/20/17 05:00 96.6 92 20 118/59 (78) 91 09/20/17 04:16 97.6 94 20 131/79 (96) 90 09/19/17 21:00 94 09/19/17 20:30 94 09/19/17 20:00 98.3 95 20 110/57 (74) 92 09/19/17 19:35 93 Nasal Cannula 2.00 09/19/17 18:36 20 09/19/17 16:30 97.1 92 18 116/57 (76) 92 09/19/17 15:20 09/19/17 14:30 81 16 122/62 (82) 94 Nasal Cannula 2.00 09/19/17 14:21 93 Nasal Cannula 2.00 09/19/17 13:30 16 09/19/17 13:24 77 20 122/62 (82) 94 Nasal Cannula 2.00 09/19/17 13:15 88 Room Air 09/19/17 12:56 78 16 116/51 (72) 95 Nasal Cannula 2.00 09/19/17 12:32 16 09/19/17 11:52 16 96 Room Air 09/19/17 11:35 16 09/19/17 11:03 98.0 83 18 120/62 (81) 95 I/O 09/19/17 09/19/17 09/19/17 09/20/17 09/20/17 09/20/17 06:59 14:59 22:59 06:59 14:59 22:59 Intake Total 1000 ml 100 ml 4740 ml Output Total 1500 ml 950 ml Balance 1000 ml 100 ml 3240 ml -950 ml Intake Oral 3240 ml IV Total 1000 ml 100 ml 1500 ml Output Urine Total 1500 ml 950 ml # Voids 6 1 # Bowel Movements 0 0 Result Diagram: 09/19/17 1135 09/19/171999 Imaging Last Impressions Head CT 09/20/17 0000 Signed Impressions: Service Date/Time: September 04:56 - CONCLUSION: Negative noncontrast head CT. Jean Manzo MD Abdomen/Pelvis CT 09/19/17 1117 Signed Impressions: Service Date/Time: Tuesday, September 19, 2017 13:01 - CONCLUSION: Marked fatty replacement to the liver. Probable 2.3 cm right adrenal adenoma. Minimal airspace disease left lung disease anteriorly left lung. Nito Puga MD FACR Chest X-Ray 09/19/17 0000 Signed Impressions: Service Date/Time: Tuesday, September 19, 2017 13:26 - CONCLUSION: Minimal parenchymal changes left base. Nito Puga MD FACR Objective Remarks GENERAL: Well-developed, well-nourished patient in NAD. On supplemental O2. SKIN: Warm and dry. No rash. HEAD: Normocephalic. Atraumatic. EYES: Pupils equal and round. No scleral icterus. No injection or drainage. ENT: No nasal bleeding or discharge. Mucous membranes pink and moist. NECK: Supple. Trachea midline. CARDIOVASCULAR: Regular rate and rhythm. S1, S2 noted. No murmur appreciated. RESPIRATORY: No accessory muscle use. Scattered expiratory wheezing. Breath sounds equal bilaterally. GASTROINTESTINAL: Abdomen soft, non-tender, nondistended. Normoactive bowel sounds x4. Umbilical reducible hernia. MUSCULOSKELETAL: No obvious deformities. Extremities without clubbing, cyanosis , or edema. NEUROLOGICAL: Awake and alert. No obvious cranial nerve deficits. Motor grossly within normal limits. 5/5 muscle strength in bilateral upper and lower extremities. Normal speech. PSYCHIATRIC: Appropriate mood and affect; insight and judgment normal. A/P Problem List: (1) Asthma exacerbation ICD Code: J45.901 - Unspecified asthma with (acute) exacerbation Status: Acute (2) Adrenal mass, right ICD Code: E27.9 - Disorder of adrenal gland, unspecified Status: Acute (3) Pneumonia ICD Code: J18.9 - Pneumonia, unspecified organism Status: Acute (4) Umbilical hernia ICD Code: K42.9 - Umbilical hernia without obstruction or gangrene Status: Acute Assessment and Plan This is a 47-year-old female patient with a known medical history of asthma who presented to the ED for complaints of abdominal pain, nausea, vomiting constipation. Acute on chronic asthma in exacerbation with hypoxia requiring supplemental O2 Community acquired pneumonia with above - Chest x-ray reviewed showing minimal parenchymal changes at the left base. CT abdomen showing minimal airspace disease left lung disease anterior left lung. Will obtain chest CT. Continue to follow. - Patient placed on azithromycin and ceftriaxone IV. Will continue. Methylprednisone 125 mg given in ED. Continue scheduled steroids. - Duo nebs scheduled and as needed for wheezing. - CBC showing mild leukocytosis with left shift. Will add lactic level. Rule out sepsis. ABG done showing hypoxia and respiratory alkalosis, patient appears to be compensating. We will continue to monitor closely. Blood cultures negative to date. UA negative. - Supplemental O2 as needed, patient requiring 2 L nasal cannula at this time. Reducible umbilical hernia With intractable nausea and vomiting and abdominal pain. Resolved. Incidental finding of right adrenal mass - Adrenal mass could be contributing to hypokalemia. - Abdomen/pelvis CT reviewed showing marked fatty replacement of the liver. Probable 2.3 cm right adrenal adenoma. - Pain control, morphine IV available as needed with [place] as needed. Per pain scale. - Zofran as needed for nausea. - Patient tolerating p.o. intake well. Severe hypokalemia suspect secondary to nausea vomiting versus dehydration Generalized weakness with report of fall overnight suspect secondary to above. - K 1.6 on presentation. Repeat 1.4 today. Patient transferred to ICU for closer monitoring. Patient placed on electronic protocol. Monitor BMP. - Magnesium level normal. - Continue close cardiac monitoring. No reports of any acute events overnight. No arrhythmias. Constipation: Continue on regimen. Dulcolax suppository today. Monitor for response. Transaminitis Fatty liver - Total bili 0.5. Mildly elevated AST and ALT.improving overnight. Continue to monitor. Elevated random glucose: No reports of any history of diabetes. Likely secondary to steroids. Will check an A1c. Follow. Placed on Accu-Chek before meals at bedtime, sliding scale insulin, cover as needed. DVT prophylaxis: SCDs. Problem Qualifiers (1) Asthma exacerbation: Qualified Codes: J45.901 - Unspecified asthma with (acute) exacerbation (2) Pneumonia: Qualified Codes: J18.1 - Lobar pneumonia, unspecified organism (3) Umbilical hernia: Qualified Codes: K42.9 - Umbilical hernia without obstruction or gangrene Glenna Peters Sep 20, 2017 09:29
[2017-09-20 10:06] LABS: BASOPHIL # 0.2 TH/MM3 (0-0.2); BASOPHIL % 1.5 % (0.0-2.0); EOSINOPHIL % 0.2 % (0.0-4.0); HEMATOCRIT 37.5 % (35.0-46.0); HEMOGLOBIN 12.6 GM/DL (11.6-15.3); LYMPH % 7.7 % (9.0-44.0); MEAN CELL VOLUME 90.1 FL (80.0-100.0); MEAN CORPUSCULAR HEMOGLOBIN 30.3 PG (27.0-34.0); MEAN CORPUSCULAR HGB CONC 33.6 % (32.0-36.0); MEAN PLATELET VOLUME 7.9 FL (7.0-11.0); MONO % 2.7 % (0.0-8.0); MONOCYTE # 0.4 TH/MM3 (0-0.9); NEUT % 87.9 % (16.0-70.0); PLATELET COUNT 335 TH/MM3 (150-450); RED BLOOD COUNT 4.16 MIL/MM3 (4.00-5.30); RED CELL DISTRIBUTION WIDTH 14.6 % (11.6-17.2); WHITE BLOOD COUNT 13.6 TH/MM3 (4.0-11.0)
[2017-09-20 10:23] LABS: ALBUMIN 2.7 GM/DL (3.4-5.0); ALT (GPT) 66 U/L (10-53); BICARBONATE 32.1 MEQ/L (21.0-32.0); CHLORIDE 97 MEQ/L (98-107); GLOMERULAR FILTRATION RATE 48 ML/MIN (>89); GLUCOSE,RANDOM 426 MG/DL (74-106); SODIUM (NA) 140 MEQ/L (136-145)
[2017-09-20 10:40] LABS: ALKALINE PHOSPHATASE 101 U/L (45-117); AST (GOT) 85 U/L (15-37); BLOOD UREA NITROGEN 8 MG/DL (7-18); TOTAL BILIRUBIN ADULT 0.3 MG/DL (0.2-1.0); TOTAL PROTEIN 6.9 GM/DL (6.4-8.2)
[2017-09-20] MEDS ORDERED: POTASSIUM CHLOR 20 MEQ PREMIX 100 ML IV PRN (11:00)
[2017-09-20] MEDS ORDERED: POTASSIUM CHLORIDE 25 MEQ EFFERVESCENT TAB PO PRN (11:00)
[2017-09-20] MEDS ORDERED: MAGNESIUM SULFATE INJ 4 GM in SODIUM CHLORIDE 0.9% INJ 92 ML IV PRN (11:00)
[2017-09-20] MEDS ORDERED: POTASSIUM CHLOR 40 MEQ PREMIX 100 ML IV PRN ×2 (11:00)
[2017-09-20] MEDS ORDERED: SODIUM PHOSPHATE INJ 30 MMOL in SODIUM CHLOR 0.9% 250 ML INJ 240 ML IV PRN (11:00)
[2017-09-20] MEDS ORDERED: POTASSIUM PHOSPHATE INJ 30 MMOL in SODIUM CHLOR 0.9% 250 ML INJ 250 ML IV PRN (11:00)
[2017-09-20] MEDS ORDERED: MAGNESIUM SULFATE INJ 2 GM in SODIUM CHLORIDE 0.9% INJ 96 ML IV PRN (11:00)
[2017-09-20] MEDS ORDERED: POTASSIUM PHOSPHATE MONOBASIC 500 MG TAB PO/TUBE PRN (11:00)
[2017-09-20] MEDS ORDERED: POTASSIUM PHOSPHATE MONOBASIC 500 MG TAB PO PRN (11:00)
[2017-09-20] MEDS ORDERED: MAGNESIUM OXIDE 400 MG TAB PO PRN (11:00)
[2017-09-20] MEDS ORDERED: POTASSIUM CHLORIDE 10 MEQ CONTROLLED RELEASE TAB PO ONE (11:15)
[2017-09-20] MEDS ORDERED: GLUCAGON 1 MG/ML VIAL OTHER PRN (12:15)
[2017-09-20] MEDS ORDERED: DEXTROSE 50% IN WATER 50 ML VIAL(D50) IV PUSH PRN (12:15)
--- NOTE | 2017-09-20 14:31 | RADRPT ---
EXAM DATE/TIME: 09/20/2017 11:53 [facility] COMPARISON: CT ABDOMEN & PELVIS W CONTRAST, September 19, 2017, 13:01. INDICATIONS : Short of breath. General weakness. RADIATION DOSE: 23.49 CTDIvol (mGy) ; Patient body habitus MEDICAL HISTORY : Hernia, umbilical. Cervical cancer. Asthma. SURGICAL HISTORY : Tubal ligation. ENCOUNTER: Initial ACUITY: 1 day PAIN SCALE: 0/10 LOCATION: chest TECHNIQUE: Volumetric scanning of the chest was performed. Using automated exposure control and adjustment of t he mA and/or kV according to patient size, radiation dose was kept as low as reasonably achievable to obtain optimal diagnostic quality images. DICOM format image data is available electronically for r eview and comparison. Follow-up recommendations for detected pulmonary nodules are based at a minimum on nodule size and pa tient risk factors according to Fleischner Society Guidelines. FINDINGS: LUNGS: Mild airspace consolidation at the right lung base. Minimal posterior crescentic airspace consolidati on in the left lung base. Minimal posterior lower lobe dependent bibasilar opacities. PLEURAE: There is no pleural thickening or pleural effusion. MEDIASTINUM: The heart and great vessels demonstrate no acute abnormality. There is no mediastinal or hilar lymph adenopathy. AXILLAE: Within normal limits. No lymphadenopathy. MUSCULOSKELETAL: Within normal limits for patient age. MISCELLANEOUS: The visualized upper abdominal organs demonstrate profound diffuse decreased attenuation of the liver with redemonstration of small low density right adrenal mass likely reflecting an adenoma.. CONCLUSION: 1. Mild bibasilar airspace consolidation, right greater then left, most is atelectasis. However, unli jadon differential considerations include aspiration or developing pneumonia in the appropriate clinic al setting. 2. Redemonstration of profound hepatic steatosis. 3. Redemonstration of small probable right adrenal adenoma. Gera Valdez MD on September 20, 2017 at 14:24 Board Certified Radiologist. This report was verified electronically.
[2017-09-20] MEDS: cefTRIAXone INJ 1,000 MG in SODIUM CHLORIDE 0.9% INJ 100 ML IV SCH (15:10)
[2017-09-20] MEDS: AZITHROMYCIN INJ 500 MG in SODIUM CHLOR 0.9% 250 ML INJ 250 ML IV SCH (15:11)
[2017-09-20 16:30] LABS: MAGNESIUM 2.3 MG/DL (1.5-2.5)
[2017-09-20 16:34] LABS: PHOSPHORUS 1.2 MG/DL (2.5-4.9)
[2017-09-20] MEDS ORDERED: SODIUM CHLOR 0.9% 1000 ML INJ 1,000 ML IV ONE ×2 (16:45→19:30)
--- NOTE | 2017-09-20 16:48 | HHI.PR ---
Addendum To [facility] Progress Not Reason for addendum: Additonal documentation (Patient seen in follow-up for electrolyte disturbance and apparent severe sepsis due to pneumoniaPatient lactic acid is elevated and patient has acute kidney injury with hypothermia . Patient otherwise seen and evaluated for abdominal pain which appears to have improved. Nausea and vomiting is better as well. Patient is hypoxemic. She appears dehydrated. We will continue IV fluids, antibiotics and continued follow-up cultures. Patient says she feels a bit better and is less weak. Care plan discussed with [employer] and family at bedside) Bhavna Garcia MD Sep 20, 2017 16:48
[2017-09-20] MEDS: INSULIN ASPART SUPPLEMENTAL SCALE SQ SCH ×2 (17:00→21:00)
[2017-09-20] MEDS ORDERED: POTASSIUM PHOSPHATE INJ 15 MMOL in SODIUM CHLORIDE 0.9% INJ 150 ML IV ONE (20:00)
[2017-09-20] MEDS: HEPARIN SODIUM - SQ 10,000 UNITS/ML VIAL SQ SCH (21:37)
[2017-09-20] MEDS ORDERED: POTASSIUM CHLORIDE 25 MEQ EFFERVESCENT TAB PO ONE (22:15)
[2017-09-20 22:51] LABS: LACTIC ACID SEPSIS PROTOCOL 3.6 mmol/L (0.4-2.0)
[2017-09-21] VITALS (13 sets, daily range): BP systolic 123–172; BP diastolic 59–90; PULSE 78–91; RESP 17–34; TEMP 97.4–98.2; O2SAT 92–96
[2017-09-21] MEDS: POTASSIUM CHLOR 20 MEQ PREMIX 100 ML IV SCH ×4 (00:09→08:00)
[2017-09-21] MEDS: ACETAMINOPHEN/HYDROcodone 325 MG/5 MG TAB PO PRN ×3 (00:10→16:10)
[2017-09-21] MEDS: methylPREDNISolone SOD SUCC 40 MG/1 ML VIAL IV PUSH SCH ×3 (00:10→20:26)
[2017-09-21 04:54] LABS: AUTOMATED NEUTROPHIL # 12.8 TH/MM3 (1.8-7.7); BASOPHIL # 0.2 TH/MM3 (0-0.2); BASOPHIL % 1.1 % (0.0-2.0); EOSINOPHIL % 0.1 % (0.0-4.0); HEMATOCRIT 35.7 % (35.0-46.0); LYMPH % 9.6 % (9.0-44.0); LYMPHOCYTE # 1.4 TH/MM3 (1.0-4.8); MEAN CELL VOLUME 89.4 FL (80.0-100.0); MEAN CORPUSCULAR HEMOGLOBIN 30.1 PG (27.0-34.0); MEAN CORPUSCULAR HGB CONC 33.7 % (32.0-36.0); MEAN PLATELET VOLUME 8.1 FL (7.0-11.0); MONO % 3.9 % (0.0-8.0); MONOCYTE # 0.6 TH/MM3 (0-0.9); NEUT % 85.3 % (16.0-70.0); PLATELET COUNT 322 TH/MM3 (150-450); RED BLOOD COUNT 3.99 MIL/MM3 (4.00-5.30); RED CELL DISTRIBUTION WIDTH 14.3 % (11.6-17.2); WHITE BLOOD COUNT 14.9 TH/MM3 (4.0-11.0)
[2017-09-21 05:09] LABS: MAGNESIUM 2.4 MG/DL (1.5-2.5)
[2017-09-21 05:13] LABS: ALBUMIN 2.7 GM/DL (3.4-5.0); BICARBONATE 34.5 MEQ/L (21.0-32.0); CALCIUM 7.3 MG/DL (8.5-10.1); CREATININE 0.71 MG/DL (0.50-1.00)
[2017-09-21 05:14] LABS: CALCIUM-PROTEIN CORRECTED 7.5 MG/DL (8.5-10.1); PHOSPHORUS 2.7 MG/DL (2.5-4.9); TOTAL BILIRUBIN ADULT 0.2 MG/DL (0.2-1.0); TOTAL PROTEIN 6.7 GM/DL (6.4-8.2)
[2017-09-21] MEDS ORDERED: POTASSIUM CHLORIDE 25 MEQ EFFERVESCENT TAB PO ONE (05:30)
[2017-09-21] MEDS: NS + KCL 20 MEQ INJ 1,000 ML IV SCH ×2 (05:42→18:46)
[2017-09-21] MEDS: RESP: ALBUTEROL 2.5 MG/IPRATROPIUM 0.5 MG NEB (SCH) NEB ×3 (07:56→20:15)
[2017-09-21] MEDS: DOCUSATE SODIUM 50 MG/SENNA 8.6 MG TAB PO SCH ×2 (08:04→20:25)
[2017-09-21] MEDS: INSULIN ASPART SUPPLEMENTAL SCALE SQ SCH ×4 (08:04→20:26)
[2017-09-21] MEDS: HEPARIN SODIUM - SQ 10,000 UNITS/ML VIAL SQ SCH ×2 (08:04→20:26)
[2017-09-21] MEDS: SODIUM CHLORIDE 0.9% FLUSH 10 ML FLUSH IV FLUSH SCH ×2 (08:05→20:26)
--- NOTE | 2017-09-21 12:22 | HHI.PR ---
Subjective Remarks Follow-up severe sepsis and hypokalemia. Patient seen and examined, sitting up in chair comfortably in no apparent distress. Patient still is on 5 L nasal cannula. Patient does states she does have dyspnea with activity. Has been tolerating p.o. intake with no abdominal pain, nausea or vomiting. Patient's labs are improving potassium 2.2 today. Will continue replacement monitoring. Objective Vitals Vital Signs Date Time Temp Pulse Resp B/P (MAP) Pulse Ox O2 Delivery O2 Flow Rate FiO2 09/21/17 12:00 78 09/21/17 08:00 97.7 09/21/17 08:00 86 09/21/17 08:00 96 Nasal Cannula 5.50 09/21/17 04:07 97.6 78 21 134/73 (93) 94 09/21/17 04:00 82 09/21/17 03:07 78 17 123/59 (80) 92 09/21/17 02:07 82 20 143/65 (91) 96 09/21/17 01:10 18 09/21/17 01:07 84 22 126/64 (84) 95 09/21/17 00:07 97.4 88 30 132/64 (86) 94 09/21/17 00:00 80 09/20/17 23:07 86 24 138/62 (87) 95 09/20/17 22:07 82 19 135/53 (80) 94 09/20/17 21:07 92 21 141/50 (80) 94 09/20/17 20:07 98.1 92 22 141/58 (85) 95 09/20/17 20:03 94 09/20/17 19:50 92 21 129/58 (81) 94 09/20/17 19:15 93 Nasal Cannula 5.50 09/20/17 16:37 98.2 94 30 149/81 (103) 95 09/20/17 16:00 96 09/20/17 15:00 96 09/20/17 14:00 96 09/20/17 13:20 93 Nasal Cannula 6.00 09/20/17 12:36 98.5 95 18 139/65 (89) 94 I/O 09/20/17 09/20/17 09/20/17 09/21/17 09/21/17 09/21/17 07:00 15:00 23:00 07:00 15:00 23:00 Intake Total 4740 ml 340 ml 1950 ml 1455 ml 100 ml Output Total 1500 ml 950 ml 700 ml 1150 ml Balance 3240 ml -610 ml 1250 ml 305 ml 100 ml Intake Oral 3240 ml 240 ml 500 ml IV Total 1500 ml 100 ml 1450 ml 1455 ml 100 ml Output Urine Total 1500 ml 950 ml 700 ml 1150 ml # Voids 6 3 # Bowel Movements 0 1 1 Result Diagram: 09/21/17 0425 09/21/17 0425 Imaging Last Impressions Head CT 09/20/17 0000 Signed Impressions: Service Date/Time: September 04:56 - CONCLUSION: Negative noncontrast head CT. Jean Manzo MD Chest CT 09/20/17 0000 Signed Impressions: Service Date/Time: September 11:53 - CONCLUSION: 1. Mild bibasilar airspace consolidation, right greater then left, most is atelectasis. However, unlikely differential considerations include aspiration or developing pneumonia in the appropriate clinical setting. 2. Redemonstration of profound hepatic steatosis. 3. Redemonstration of small probable right adrenal adenoma. Gera Valdez MD Abdomen/Pelvis CT 09/19/17 1117 Signed Impressions: Service Date/Time: Tuesday, September 19, 2017 13:01 - CONCLUSION: Marked fatty replacement to the liver. Probable 2.3 cm right adrenal adenoma. Minimal airspace disease left lung disease anteriorly left lung. Nito Puga MD FACR Chest X-Ray 09/19/17 0000 Signed Impressions: Service Date/Time: Tuesday, September 19, 2017 13:26 - CONCLUSION: Minimal parenchymal changes left base. Nito Puga MD FACR Objective Remarks GENERAL: Well-developed, well-nourished patient in NAD. On supplemental O2. SKIN: Warm and dry. No rash. HEAD: Normocephalic. Atraumatic. EYES: Pupils equal and round. No scleral icterus. No injection or drainage. ENT: No nasal bleeding or discharge. Mucous membranes pink and moist. NECK: Supple. Trachea midline. CARDIOVASCULAR: Regular rate and rhythm. S1, S2 noted. No murmur appreciated. RESPIRATORY: No accessory muscle use. Scattered expiratory wheezing. Breath sounds equal bilaterally. GASTROINTESTINAL: Abdomen soft, non-tender, nondistended. Normoactive bowel sounds x4. Umbilical reducible hernia. MUSCULOSKELETAL: No obvious deformities. Extremities without clubbing, cyanosis , or edema. NEUROLOGICAL: Awake and alert. No obvious cranial nerve deficits. Motor grossly within normal limits. 5/5 muscle strength in bilateral upper and lower extremities. Normal speech. PSYCHIATRIC: Appropriate mood and affect; insight and judgment normal. A/P Problem List: (1) Asthma exacerbation ICD Code: J45.901 - Unspecified asthma with (acute) exacerbation Status: Acute (2) Adrenal mass, right ICD Code: E27.9 - Disorder of adrenal gland, unspecified Status: Acute (3) Pneumonia ICD Code: J18.9 - Pneumonia, unspecified organism Status: Acute (4) Umbilical hernia ICD Code: K42.9 - Umbilical hernia without obstruction or gangrene Status: Acute Assessment and Plan This is a 47-year-old female patient with a known medical history of asthma who presented to the ED for complaints of abdominal pain, nausea, vomiting constipation. Severe sepsis suspect secondary to pneumonia Acute on chronic asthma in exacerbation with hypoxia requiring supplemental O2 Community acquired pneumonia with above - Patient with lactic acidosis 5.7. Now is down to 2.5. Was given IV fluids. UA negative. - Chest x-ray reviewed showing minimal parenchymal changes at the left base. CT abdomen showing minimal airspace disease left lung disease anterior left lung. - Chest CT reviewed showing mild bibasilar airspace consolidation, right greater than left. - Patient placed on azithromycin and ceftriaxone IV. Will continue. Methylprednisone 125 mg given in ED. Continue scheduled steroids. Will wean. - Duo nebs scheduled and as needed for wheezing. - CBC showing mild leukocytosis with left shift. May be secondary to steroids. Will add lactic level. Rule out sepsis. Blood cultures negative to date. - Supplemental O2 as needed, patient requiring 2 L nasal cannula at this time. Reducible umbilical hernia With intractable nausea and vomiting and abdominal pain. Resolved. Incidental finding of right adrenal mass - Adrenal mass could be contributing to hypokalemia. - Abdomen/pelvis CT reviewed showing marked fatty replacement of the liver. Probable 2.3 cm right adrenal adenoma. - Pain control, morphine IV available as needed with [place] as needed. Per pain scale. - Zofran as needed for nausea. - Patient tolerating p.o. intake well. Severe hypokalemia suspect secondary to nausea vomiting versus dehydration Generalized weakness with report of fall overnight suspect secondary to above. - K 1.6 on presentation. Repeat 2.2 today. Continue ICU monitoring. Patient placed on electronic protocol. Monitor BMP. - Magnesium level normal. - Continue close cardiac monitoring. No reports of any acute events overnight. No arrhythmias. Constipation: Resolved. Continue on regimen. Transaminitis Fatty liver - Total bili 0.2. Mildly elevated AST and ALT.improving overnight. Continue to monitor. Elevated random glucose: No reports of any history of diabetes. Likely secondary to steroids. Will check an A1c. Follow. Placed on Accu-Chek before meals at bedtime, sliding scale insulin, cover as needed. DVT prophylaxis: SCDs. Heparin. Problem Qualifiers (1) Asthma exacerbation: Qualified Codes: J45.901 - Unspecified asthma with (acute) exacerbation (2) Pneumonia: Qualified Codes: J18.1 - Lobar pneumonia, unspecified organism (3) Umbilical hernia: Qualified Codes: K42.9 - Umbilical hernia without obstruction or gangrene Glenna Peters Sep 21, 2017 12:22
[2017-09-21 14:53] LABS: HEMOGLOBIN A1C 6.8 % (4.3-6.0)
[2017-09-21] MEDS: AZITHROMYCIN INJ 500 MG in SODIUM CHLOR 0.9% 250 ML INJ 250 ML IV SCH (16:11)
[2017-09-21] MEDS: cefTRIAXone INJ 1,000 MG in SODIUM CHLORIDE 0.9% INJ 100 ML IV SCH (16:11)
[2017-09-21] MEDS: ONDANSETRON HCL 4 MG/2 ML VIAL IVP PRN (16:45)
[2017-09-21 18:32] LABS: MAGNESIUM 2.4 MG/DL (1.5-2.5)
[2017-09-21] MEDS ORDERED: ALUMINUM/MAGNESIUM/SIMETH 30 ML CUP PO PRN (22:15)
[2017-09-21 22:54] LABS: PHOSPHORUS 1.8 MG/DL (2.5-4.9)
[2017-09-21] MEDS: POTASSIUM CHLOR 20 MEQ PREMIX 100 ML IV PRN (22:57)
[2017-09-21] MEDS ORDERED: POTASSIUM PHOSPHATE INJ 15 MMOL in SODIUM CHLORIDE 0.9% INJ 150 ML IV ONE (23:45)
[2017-09-22] VITALS (12 sets, daily range): BP systolic 128–172; BP diastolic 73–99; PULSE 78–97; RESP 17–22; TEMP 97.8–98.3; O2SAT 90–97
[2017-09-22] MEDS: ONDANSETRON HCL 4 MG/2 ML VIAL IVP PRN ×2 (02:16→14:26)
[2017-09-22 06:57] LABS: ALBUMIN 2.8 GM/DL (3.4-5.0); BICARBONATE 39.8 MEQ/L (21.0-32.0); CALCIUM 7.3 MG/DL (8.5-10.1); CALCIUM-PROTEIN CORRECTED 7.7 MG/DL (8.5-10.1); CREATININE 0.57 MG/DL (0.50-1.00); PHOSPHORUS 2.5 MG/DL (2.5-4.9); TOTAL BILIRUBIN ADULT 0.3 MG/DL (0.2-1.0); TOTAL PROTEIN 6.4 GM/DL (6.4-8.2)
[2017-09-22] MEDS: RESP: ALBUTEROL 2.5 MG/IPRATROPIUM 0.5 MG NEB (SCH) NEB ×3 (07:31→19:23)
[2017-09-22] MEDS ORDERED: PROCHLORPERAZINE MALEATE 5 MG TAB PO PRN (07:45)
[2017-09-22] MEDS: INSULIN ASPART SUPPLEMENTAL SCALE SQ SCH ×4 (08:00→20:01)
[2017-09-22] MEDS: HEPARIN SODIUM - SQ 10,000 UNITS/ML VIAL SQ SCH ×2 (08:29→20:05)
[2017-09-22] MEDS: DOCUSATE SODIUM 50 MG/SENNA 8.6 MG TAB PO SCH ×2 (08:29→20:05)
[2017-09-22] MEDS: methylPREDNISolone SOD SUCC 40 MG/1 ML VIAL IV PUSH SCH ×2 (08:29→20:05)
[2017-09-22] MEDS: POTASSIUM CHLOR 20 MEQ PREMIX 100 ML IV SCH ×2 (08:30→11:31)
[2017-09-22] MEDS: SODIUM CHLORIDE 0.9% FLUSH 10 ML FLUSH IV FLUSH SCH ×2 (08:30→20:05)
[2017-09-22] MEDS ORDERED: POTASSIUM CHLORIDE 20 MEQ CONTROLLED RELEASE TAB PO ONE (09:00)
--- NOTE | 2017-09-22 09:55 | HHI.PR ---
Subjective Remarks Follow-up severe sepsis and hypokalemia. Patient seen and examined, sitting up in chair comfortably. Does complain of nausea. Compazine has been ineffective. One bout of emesis overnight. Will check hepatitis panel for transaminitis. Blood sugar improving. CPK elevated. Continue IVF. K improving. Objective Vitals Vital Signs Date Time Temp Pulse Resp B/P (MAP) Pulse Ox O2 Delivery O2 Flow Rate FiO2 09/22/17 07:32 95 Nasal Cannula 4.00 09/22/17 04:13 88 09/22/17 04:00 98.3 85 22 157/78 (104) 94 09/22/17 00:00 97.9 95 18 146/82 (103) 92 09/22/17 00:00 97 09/21/17 20:15 93 Nasal Cannula 4.00 09/21/17 20:00 82 09/21/17 20:00 97.7 84 27 166/82 (110) 92 09/21/17 19:23 80 34 172/90 (117) 94 09/21/17 16:00 90 09/21/17 16:00 98.1 91 17 153/86 (108) 95 09/21/17 12:00 78 09/21/17 12:00 98.2 78 18 168/89 (115) 96 I/O 09/21/17 09/21/17 09/21/17 09/22/17 09/22/17 09/22/17 07:00 15:00 23:00 07:00 15:00 23:00 Intake Total 1455 ml 100 ml 960 ml 255 ml Output Total 1150 ml 1400 ml 600 ml 150 ml Balance 305 ml 100 ml -440 ml -345 ml -150 ml Intake Oral 960 ml IV Total 1455 ml 100 ml 255 ml Output Urine Total 1150 ml 1400 ml 600 ml 150 ml # Bowel Movements 1 1 1 1 Result Diagram: 09/21/17 0425 09/22/17 0604 Imaging Last Impressions Head CT 09/20/17 0000 Signed Impressions: Service Date/Time: September 04:56 - CONCLUSION: Negative noncontrast head CT. Jean Manzo MD Chest CT 09/20/17 0000 Signed Impressions: Service Date/Time: September 11:53 - CONCLUSION: 1. Mild bibasilar airspace consolidation, right greater then left, most is atelectasis. However, unlikely differential considerations include aspiration or developing pneumonia in the appropriate clinical setting. 2. Redemonstration of profound hepatic steatosis. 3. Redemonstration of small probable right adrenal adenoma. Gera Valdez MD Abdomen/Pelvis CT 09/19/17 1117 Signed Impressions: Service Date/Time: Tuesday, September 19, 2017 13:01 - CONCLUSION: Marked fatty replacement to the liver. Probable 2.3 cm right adrenal adenoma. Minimal airspace disease left lung disease anteriorly left lung. Nito Puga MD FACR Chest X-Ray 09/19/17 0000 Signed Impressions: Service Date/Time: Tuesday, September 19, 2017 13:26 - CONCLUSION: Minimal parenchymal changes left base. Nito Puga MD FACR Objective Remarks GENERAL: Well-developed, well-nourished patient in NAD. On supplemental O2. SKIN: Warm and dry. No rash. HEAD: Normocephalic. Atraumatic. EYES: Pupils equal and round. No scleral icterus. No injection or drainage. ENT: No nasal bleeding or discharge. Mucous membranes pink and moist. NECK: Supple. Trachea midline. CARDIOVASCULAR: Regular rate and rhythm. S1, S2 noted. No murmur appreciated. RESPIRATORY: No accessory muscle use. Scattered expiratory wheezing. Breath sounds equal bilaterally. GASTROINTESTINAL: Abdomen soft, non-tender, nondistended. Normoactive bowel sounds x4. Umbilical reducible hernia. MUSCULOSKELETAL: No obvious deformities. Extremities without clubbing, cyanosis , or edema. NEUROLOGICAL: Awake and alert. No obvious cranial nerve deficits. Motor grossly within normal limits. 5/5 muscle strength in bilateral upper and lower extremities. Normal speech. PSYCHIATRIC: Appropriate mood and affect; insight and judgment normal. A/P Problem List: (1) Asthma exacerbation ICD Code: J45.901 - Unspecified asthma with (acute) exacerbation Status: Acute (2) Adrenal mass, right ICD Code: E27.9 - Disorder of adrenal gland, unspecified Status: Acute (3) Pneumonia ICD Code: J18.9 - Pneumonia, unspecified organism Status: Acute (4) Umbilical hernia ICD Code: K42.9 - Umbilical hernia without obstruction or gangrene Status: Acute Assessment and Plan This is a 47-year-old female patient with a known medical history of asthma who presented to the ED for complaints of abdominal pain, nausea, vomiting constipation. Severe sepsis suspect secondary to pneumonia Acute on chronic asthma in exacerbation with hypoxia requiring supplemental O2 Community acquired pneumonia with above Rhabdomyolysis with elevated CPK - Patient with lactic acidosis 5.7. Down to 2.5. Continue IVF, elevated CPK, trending down. UA negative. - Chest x-ray reviewed showing minimal parenchymal changes at the left base. CT abdomen showing minimal airspace disease left lung disease anterior left lung. - Chest CT reviewed showing mild bibasilar airspace consolidation, right greater than left. - Patient placed on azithromycin and ceftriaxone IV. Will continue. Methylprednisone 125 mg given in ED. Continue scheduled steroids. Will wean. - Duo nebs scheduled and as needed for wheezing. - CBC showing mild leukocytosis with left shift. May be secondary to steroids. Blood cultures negative to date. Legionella negative. Influenza negative. - Supplemental O2 as needed, patient requiring 4 L nasal cannula at this time. Wean as tolerated. Reducible umbilical hernia With intractable nausea and vomiting and abdominal pain. One bout of emesis overnight. Incidental finding of right adrenal mass Constipation. Resolved. - Adrenal mass could be contributing to hypokalemia. - Abdomen/pelvis CT reviewed showing marked fatty replacement of the liver. Probable 2.3 cm right adrenal adenoma. - Pain control, morphine IV available as needed with [place] as needed. Per pain scale. - Zofran as needed for nausea. - Patient tolerating p.o. intake well. Severe hypokalemia suspect secondary to nausea vomiting versus dehydration Generalized weakness with report of fall overnight suspect secondary to above versus rhabdomyolysis - K 1.6 on presentation. Repeat 2.7 today. Continue ICU monitoring. Patient placed on electronic protocol. Monitor BMP. - Magnesium level normal. - Continue close cardiac monitoring. No reports of any acute events overnight. No arrhythmias. Transaminitis Fatty liver - Total bili 0.2. Mildly elevated AST and ALT.improving overnight. Continue to monitor. - Will check hepatitis panel. Follow. Hypertriglyceridemia: Triglycerides 379. Encourage lifestyle modification including low fat diet and avoidance of alcohol. Elevated random glucose: No reports of any history of diabetes. Likely secondary to steroids. A1c 6.8. Placed on Accu-Chek before meals at bedtime, sliding scale insulin, cover as needed. DVT prophylaxis: SCDs. Heparin. Problem Qualifiers (1) Asthma exacerbation: Qualified Codes: J45.901 - Unspecified asthma with (acute) exacerbation (2) Pneumonia: Qualified Codes: J18.1 - Lobar pneumonia, unspecified organism (3) Umbilical hernia: Qualified Codes: K42.9 - Umbilical hernia without obstruction or gangrene Glenna PetersP Sep 22, 2017 09:55
[2017-09-22] MEDS: NS + KCL 20 MEQ INJ 1,000 ML IV SCH ×2 (10:08→23:21)
[2017-09-22] MEDS ORDERED: SCOPOLAMINE 1.5 MG PATCH T-DERMAL SCH (12:00)
[2017-09-22 12:07] LABS: CHOLESTEROL/ HDL RATIO 6.21 RATIO; HDL CHOLESTEROL 31.7 MG/DL (40.0-60.0)
[2017-09-22] MEDS: cloNIDine HCL 0.1 MG TAB PO PRN (13:14)
[2017-09-22] MEDS: AZITHROMYCIN INJ 500 MG in SODIUM CHLOR 0.9% 250 ML INJ 250 ML IV SCH (15:01)
[2017-09-22] MEDS: cefTRIAXone INJ 1,000 MG in SODIUM CHLORIDE 0.9% INJ 100 ML IV SCH (15:01)
[2017-09-22] MEDS: POTASSIUM CHLOR 20 MEQ PREMIX 100 ML IV PRN ×3 (19:19→23:21)
[2017-09-23] VITALS (9 sets, daily range): BP systolic 125–166; BP diastolic 64–92; PULSE 74–86; RESP 16–24; TEMP 97.1–98.6; O2SAT 90–96
[2017-09-23] MEDS: POTASSIUM CHLOR 20 MEQ PREMIX 100 ML IV PRN (01:26)
[2017-09-23 06:51] LABS: AUTOMATED NEUTROPHIL # 6.5 TH/MM3 (1.8-7.7); BASOPHIL # 0.1 TH/MM3 (0-0.2); BASOPHIL % 1.2 % (0.0-2.0); HEMATOCRIT 36.2 % (35.0-46.0); HEMOGLOBIN 12.4 GM/DL (11.6-15.3); LYMPH % 23.1 % (9.0-44.0); LYMPHOCYTE # 2.1 TH/MM3 (1.0-4.8); MEAN CELL VOLUME 90.4 FL (80.0-100.0); MEAN CORPUSCULAR HGB CONC 34.3 % (32.0-36.0); MEAN PLATELET VOLUME 7.8 FL (7.0-11.0); MONO % 5.6 % (0.0-8.0); MONOCYTE # 0.5 TH/MM3 (0-0.9); NEUT % 70.1 % (16.0-70.0); PLATELET COUNT 308 TH/MM3 (150-450); RED CELL DISTRIBUTION WIDTH 14.8 % (11.6-17.2); WHITE BLOOD COUNT 9.2 TH/MM3 (4.0-11.0)
[2017-09-23 07:20] LABS: BICARBONATE 33.8 MEQ/L (21.0-32.0); CALCIUM 7.4 MG/DL (8.5-10.1); CREATININE 0.46 MG/DL (0.50-1.00); MAGNESIUM 2.6 MG/DL (1.5-2.5)
[2017-09-23] MEDS: RESP: ALBUTEROL 2.5 MG/IPRATROPIUM 0.5 MG NEB (SCH) NEB ×3 (07:27→19:54)
[2017-09-23 07:33] LABS: CALCIUM-PROTEIN CORRECTED 7.9 MG/DL (8.5-10.1); TOTAL PROTEIN 6.2 GM/DL (6.4-8.2)
[2017-09-23] MEDS: INSULIN ASPART SUPPLEMENTAL SCALE SQ SCH ×4 (08:00→21:00)
[2017-09-23] MEDS: DOCUSATE SODIUM 50 MG/SENNA 8.6 MG TAB PO SCH ×2 (09:00→21:00)
[2017-09-23] MEDS: HEPARIN SODIUM - SQ 10,000 UNITS/ML VIAL SQ SCH ×2 (09:28→21:18)
[2017-09-23] MEDS: methylPREDNISolone SOD SUCC 40 MG/1 ML VIAL IV PUSH SCH ×2 (09:29→21:14)
[2017-09-23] MEDS: SODIUM CHLORIDE 0.9% FLUSH 10 ML FLUSH IV FLUSH SCH ×2 (09:29→20:21)
[2017-09-23] MEDS: NS + KCL 20 MEQ INJ 1,000 ML IV SCH ×2 (11:23→13:22)
--- NOTE | 2017-09-23 11:24 | HHI.PR ---
Subjective Remarks Follow-up severe sepsis, hyponatremia and pneumonia. Patient seen and examined , sitting in chair comfortably in no apparent distress, much improved. Patient is ambulating in room without any dyspnea. Supplemental O2 3 L nasal cannula at this time. Eating and drinking well, denies any abdominal pain, nausea or vomiting. Vital signs stable. Afebrile. Patient will be transferred out of ICU today. Objective Vitals Vital Signs Date Time Temp Pulse Resp B/P (MAP) Pulse Ox O2 Delivery O2 Flow Rate FiO2 09/23/17 08:00 86 09/23/17 08:00 98.4 86 23 146/85 (105) 90 09/23/17 07:28 94 Nasal Cannula 3.00 09/23/17 04:00 83 09/23/17 04:00 97.8 83 24 133/71 (91) 94 09/23/17 00:00 79 09/23/17 00:00 98.2 78 19 125/64 (84) 92 09/22/17 20:12 82 09/22/17 20:00 98.1 82 20 143/75 (97) 93 09/22/17 19:23 95 Nasal Cannula 3.00 09/22/17 16:00 98.0 83 22 128/78 (95) 92 09/22/17 16:00 80 09/22/17 15:17 82 17 137/73 (94) 90 09/22/17 12:42 78 17 162/89 (113) 95 09/22/17 12:00 97.8 78 20 172/99 (123) 93 09/22/17 12:00 88 I/O 09/22/17 09/22/17 09/22/17 09/23/17 09/23/17 09/23/17 07:00 15:00 23:00 07:00 15:00 23:00 Intake Total 255 ml 1200 ml 1170 ml 1100 ml Output Total 600 ml 150 ml 950 ml 600 ml Balance -345 ml 1050 ml 220 ml 500 ml Intake Oral 720 ml IV Total 255 ml 1200 ml 450 ml 1100 ml Output Urine Total 600 ml 150 ml 600 ml 600 ml Emesis 350 ml # Bowel Movements 1 1 3 Result Diagram: 09/23/17 0553 09/23/17 0553 Imaging Last Impressions Head CT 09/20/17 0000 Signed Impressions: Service Date/Time: September 04:56 - CONCLUSION: Negative noncontrast head CT. Jean Manzo MD Chest CT 09/20/17 0000 Signed Impressions: Service Date/Time: September 11:53 - CONCLUSION: 1. Mild bibasilar airspace consolidation, right greater then left, most is atelectasis. However, unlikely differential considerations include aspiration or developing pneumonia in the appropriate clinical setting. 2. Redemonstration of profound hepatic steatosis. 3. Redemonstration of small probable right adrenal adenoma. Gera Valdez MD Abdomen/Pelvis CT 09/19/17 1117 Signed Impressions: Service Date/Time: Tuesday, September 19, 2017 13:01 - CONCLUSION: Marked fatty replacement to the liver. Probable 2.3 cm right adrenal adenoma. Minimal airspace disease left lung disease anteriorly left lung. Nito Puga MD FACR Chest X-Ray 09/19/17 0000 Signed Impressions: Service Date/Time: Tuesday, September 19, 2017 13:26 - CONCLUSION: Minimal parenchymal changes left base. Nito Puga MD FACR Objective Remarks GENERAL: Well-developed, well-nourished patient in NAD. On supplemental O2. SKIN: Warm and dry. No rash. HEAD: Normocephalic. Atraumatic. EYES: Pupils equal and round. No scleral icterus. No injection or drainage. ENT: No nasal bleeding or discharge. Mucous membranes pink and moist. NECK: Supple. Trachea midline. CARDIOVASCULAR: Regular rate and rhythm. S1, S2 noted. No murmur appreciated. RESPIRATORY: No accessory muscle use. Scattered expiratory wheezing, more so in left posterior upper and lower lobe. Breath sounds equal bilaterally. GASTROINTESTINAL: Abdomen soft, non-tender, nondistended. Normoactive bowel sounds x4. Umbilical reducible hernia. MUSCULOSKELETAL: No obvious deformities. Extremities without clubbing, cyanosis , or edema. NEUROLOGICAL: Awake and alert. No obvious cranial nerve deficits. Motor grossly within normal limits. 5/5 muscle strength in bilateral upper and lower extremities. Normal speech. PSYCHIATRIC: Appropriate mood and affect; insight and judgment normal. A/P Problem List: (1) Asthma exacerbation ICD Code: J45.901 - Unspecified asthma with (acute) exacerbation Status: Acute (2) Adrenal mass, right ICD Code: E27.9 - Disorder of adrenal gland, unspecified Status: Acute (3) Pneumonia ICD Code: J18.9 - Pneumonia, unspecified organism Status: Acute (4) Umbilical hernia ICD Code: K42.9 - Umbilical hernia without obstruction or gangrene Status: Acute Assessment and Plan This is a 47-year-old female patient with a known medical history of asthma who presented to the ED for complaints of abdominal pain, nausea, vomiting constipation. Severe sepsis suspect secondary to pneumonia Acute on chronic asthma in exacerbation with hypoxia requiring supplemental O2 Community acquired pneumonia with above Rhabdomyolysis with elevated CPK - Patient with lactic acidosis 5.7. Down to 2.5. Continue IVF, elevated CPK, trending down. UA negative. - Chest x-ray reviewed showing minimal parenchymal changes at the left base. CT abdomen showing minimal airspace disease left lung disease anterior left lung. - Chest CT reviewed showing mild bibasilar airspace consolidation, right greater than left. - Patient placed on azithromycin and ceftriaxone IV. Will continue. Methylprednisone 125 mg given in ED. Continue scheduled steroids. Will wean. - Duo nebs scheduled and as needed for wheezing. - CBC showing mild leukocytosis with left shift. May be secondary to steroids. Blood cultures negative to date. Legionella negative. Influenza negative. - Supplemental O2 as needed, patient requiring 3 L nasal cannula at this time. Wean as tolerated. Reducible umbilical hernia With intractable nausea and vomiting and abdominal pain. One bout of emesis overnight. Incidental finding of right adrenal mass Constipation. Resolved. - Adrenal mass could be contributing to hypokalemia. - Abdomen/pelvis CT reviewed showing marked fatty replacement of the liver. Probable 2.3 cm right adrenal adenoma. - Pain control, morphine IV available as needed with [place] as needed. Per pain scale. - Zofran as needed for nausea. - Patient tolerating p.o. intake well. Severe hypokalemia suspect secondary to nausea vomiting versus dehydration Generalized weakness with report of fall overnight suspect secondary to above versus rhabdomyolysis - K 1.6 on presentation. Repeat 3.9 today. Monitor BMP. Magnesium level normal. - Continue close cardiac monitoring. No reports of any acute events overnight. No arrhythmias. Transaminitis Fatty liver - Total bili 0.2. Mildly elevated AST and ALT. improving overnight. Continue to monitor. - Hepatitis panel negative. Hypertriglyceridemia: Triglycerides 379. Encourage lifestyle modification including low fat diet and avoidance of alcohol. Elevated random glucose: No reports of any history of diabetes. Likely secondary to steroids. A1c 6.8. Placed on Accu-Chek before meals at bedtime, sliding scale insulin, cover as needed. DVT prophylaxis: SCDs. Heparin. Problem Qualifiers (1) Asthma exacerbation: Qualified Codes: J45.901 - Unspecified asthma with (acute) exacerbation (2) Pneumonia: Qualified Codes: J18.1 - Lobar pneumonia, unspecified organism (3) Umbilical hernia: Qualified Codes: K42.9 - Umbilical hernia without obstruction or gangrene Glenna Peters Sep 23, 2017 11:24
[2017-09-23] MEDS: cefTRIAXone INJ 1,000 MG in SODIUM CHLORIDE 0.9% INJ 100 ML IV SCH (14:06)
[2017-09-23] MEDS: AZITHROMYCIN INJ 500 MG in SODIUM CHLOR 0.9% 250 ML INJ 250 ML IV SCH (14:06)
[2017-09-24] VITALS: BP 179/92; PULSE 75; RESP 20; TEMP 97.5; O2SAT 95
[2017-09-24] MEDS: cloNIDine HCL 0.1 MG TAB PO PRN (01:41)
[2017-09-24] MEDS: NS + KCL 20 MEQ INJ 1,000 ML IV SCH (01:41)
[2017-09-24 04:00] VITALS: BP 162/84; PULSE 67; RESP 20; TEMP 96.9; O2SAT 95
[2017-09-24 06:03] LABS: BICARBONATE 28.6 MEQ/L (21.0-32.0); CALCIUM 7.8 MG/DL (8.5-10.1)
[2017-09-24 06:07] LABS: CREATININE 0.62 MG/DL (0.50-1.00)
[2017-09-24 07:30] VITALS: BP 157/89; PULSE 64; RESP 20; TEMP 96.9; O2SAT 96
[2017-09-24 08:00] VITALS: O2SAT 96
[2017-09-24] MEDS: INSULIN ASPART SUPPLEMENTAL SCALE SQ SCH ×2 (08:00→11:38)
[2017-09-24] MEDS ORDERED: methylPREDNISolone SOD SUCC 40 MG/1 ML VIAL IV PUSH SCH (09:00)
[2017-09-24] MEDS ORDERED: POTASSIUM CHLORIDE 20 MEQ CONTROLLED RELEASE TAB PO ONE (09:00)
[2017-09-24] MEDS: HEPARIN SODIUM - SQ 10,000 UNITS/ML VIAL SQ SCH (09:31)
[2017-09-24] MEDS: DOCUSATE SODIUM 50 MG/SENNA 8.6 MG TAB PO SCH (09:31)
[2017-09-24] MEDS: SODIUM CHLORIDE 0.9% FLUSH 10 ML FLUSH IV FLUSH SCH (09:32)
[2017-09-24] MEDS ORDERED: AMLO5TAB2 PO (10:54)
[2017-09-24] MEDS ORDERED: PRED20 PO (10:54)
[2017-09-24] MEDS ORDERED: AMOX875T PO (10:54)
--- NOTE | 2017-09-24 10:56 | HHI.DCPOC ---
Discharge Care Plan Diagnosis: (1) Hypokalemia (2) Umbilical hernia (3) Pneumonia (4) Adrenal mass, right (5) Asthma exacerbation Goals to Promote Your Health * To prevent worsening of your condition and complications * To maintain your health at the optimal level Directions to Meet Your Goals Take your medications as prescribed Follow your dietary instruction Follow activity as directed Keep your appointments as scheduled Take your immunizations and boosters as scheduled If your symptoms worsen call your PCP, if no PCP go to Urgent Care Center or Emergency Room Smoking is Dangerous to Your Health. Avoid second hand smoke Call the 24-hour hour crisis hotline for domestic abuse at Glenna Peters Sep 24, 2017 10:56
--- NOTE | 2017-09-24 10:57 | HHI.DS ---
Discharge Summary Admission Date Sep 19, 2017 at 14:13 Discharge Date: Sep 24, 2017 Admitting Diagnosis Pneumonia, hypokalemia, reducible umbilical hernia (1) Asthma exacerbation ICD Code: J45.901 - Unspecified asthma with (acute) exacerbation Status: Acute (2) Adrenal mass, right ICD Code: E27.9 - Disorder of adrenal gland, unspecified Status: Acute (3) Pneumonia ICD Code: J18.9 - Pneumonia, unspecified organism Status: Acute (4) Umbilical hernia ICD Code: K42.9 - Umbilical hernia without obstruction or gangrene Status: Acute Procedures Please see below. Brief History - From Admission This is a 47-year-old female patient with a known medical history of asthma who presented to the ED for complaints of abdominal pain, nausea, vomiting constipation. Patient states that she has had one day of vomiting and over the course of the last week she has been able to eat with poor appetite and nausea every time she eats. Abdominal pain is in the umbilical area, rated a 3 out of 4 on pain scale and worsens with movement. Patient does state she has not had a bowel movement in 3 days. Her baseline is having a bowel movement every day. Patient also states she has had associated shortness of breath and fatigue over the past week. She does have duo nebs at home, states she has been increasing the use of these every day up to 3-4 times per day. Denies any recent fever, chills, cough, headache, diarrhea or dysuria. Patient also states she is recognized a bulge at her umbilical area with pain in the same area. At the time of assessment patient is examined, umbilical hernia is reducible with apparent pain on palpation. Denies any nausea or vomiting at the current time. Abdominal/pelvis CT showing probable 2.3 cm right adrenal adenoma. With minimal airspace disease left lung disease anterior left lung. Potassium 1.6 on presentation. UA negative. CBC essentially unremarkable. CBC/BMP: 09/23/17 0553 09/24/17 0520 Significant Findings Laboratory Tests Test 09/21/17 13:20 09/21/17 22:30 09/22/17 06:04 09/22/17 13:12 Potassium Level 2.7 MEQ/L (3.5-5.1) 2.8 MEQ/L (3.5-5.1) 2.7 MEQ/L (3.5-5.1) Phosphorus Level 1.8 MG/DL (2.5-4.9) Total Creatine Kinase 4533 U/L (26-192) 3284 U/L (26-192) Creatine Kinase MB 11.5 NG/ML (0.5-3.6) 6.1 NG/ML (0.5-3.6) Blood Urea Nitrogen 6 MG/DL (7-18) Random Glucose 169 MG/DL (74-106) Albumin 2.8 GM/DL (3.4-5.0) Calcium Level 7.3 MG/DL (8.5-10.1) Aspartate Amino Transf (AST/SGOT) 98 U/L (15-37) Alanine Aminotransferase (ALT/SGPT) 87 U/L (10-53) Chloride Level 97 MEQ/L (98-107) Carbon Dioxide Level 39.8 MEQ/L (21.0-32.0) Anion Gap 4 MEQ/L (5-15) Protein Corrected Calcium 7.7 MG/DL (8.5-10.1) Triglycerides Level 379 MG/DL (42-150) HDL Cholesterol 31.7 MG/DL (40.0-60.0) Test 09/22/17 17:58 09/23/17 05:53 09/24/17 05:20 Potassium Level 3.1 MEQ/L (3.5-5.1) Neutrophils (%) (Auto) 70.1 % (16.0-70.0) Creatinine 0.46 MG/DL (0.50-1.00) Random Glucose 134 MG/DL (74-106) 169 MG/DL (74-106) Total Protein 6.2 GM/DL (6.4-8.2) Calcium Level 7.4 MG/DL (8.5-10.1) 7.8 MG/DL (8.5-10.1) Magnesium Level 2.6 MG/DL (1.5-2.5) Carbon Dioxide Level 33.8 MEQ/L (21.0-32.0) Anion Gap 3 MEQ/L (5-15) Protein Corrected Calcium 7.9 MG/DL (8.5-10.1) Total Creatine Kinase 998 U/L (26-192) 393 U/L (26-192) Imaging Last Impressions Head CT 09/20/17 0000 Signed Impressions: Service Date/Time: September 04:56 - CONCLUSION: Negative noncontrast head CT. Jean Manzo MD Chest CT 09/20/17 0000 Signed Impressions: Service Date/Time: September 11:53 - CONCLUSION: 1. Mild bibasilar airspace consolidation, right greater then left, most is atelectasis. However, unlikely differential considerations include aspiration or developing pneumonia in the appropriate clinical setting. 2. Redemonstration of profound hepatic steatosis. 3. Redemonstration of small probable right adrenal adenoma. Gera Valdez MD Abdomen/Pelvis CT 09/19/17 1117 Signed Impressions: Service Date/Time: Tuesday, September 19, 2017 13:01 - CONCLUSION: Marked fatty replacement to the liver. Probable 2.3 cm right adrenal adenoma. Minimal airspace disease left lung disease anteriorly left lung. Nito Puga MD FACR Chest X-Ray 09/19/17 0000 Signed Impressions: Service Date/Time: Tuesday, September 19, 2017 13:26 - CONCLUSION: Minimal parenchymal changes left base. Nito Puga MD FACR PE at Discharge GENERAL: Well-developed, well-nourished patient in NAD. On supplemental O2. SKIN: Warm and dry. No rash. HEAD: Normocephalic. Atraumatic. EYES: Pupils equal and round. No scleral icterus. No injection or drainage. ENT: No nasal bleeding or discharge. Mucous membranes pink and moist. NECK: Supple. Trachea midline. CARDIOVASCULAR: Regular rate and rhythm. S1, S2 noted. No murmur appreciated. RESPIRATORY: No accessory muscle use. Scattered expiratory wheezing, more so in left posterior upper and lower lobe. Breath sounds equal bilaterally. GASTROINTESTINAL: Abdomen soft, non-tender, nondistended. Normoactive bowel sounds x4. Umbilical reducible hernia. MUSCULOSKELETAL: No obvious deformities. Extremities without clubbing, cyanosis , or edema. NEUROLOGICAL: Awake and alert. No obvious cranial nerve deficits. Motor grossly within normal limits. 5/5 muscle strength in bilateral upper and lower extremities. Normal speech. PSYCHIATRIC: Appropriate mood and affect; insight and judgment normal. Pt update on day of discharge Follow-up severe sepsis, pneumonia, and severe hypokalemia. Patient seen and examined, sitting in chair in no apparent distress. On room air. Much improved. All symptoms resolved. Drinking and eating well. Abdominal pain resolved. Passing gas and having bowel movement. Blood pressure elevated, placed on BP medications. Encouraged to follow-up with PCP. No history of hypertension. Hospital Course This is a 47-year-old female patient with a known medical history of asthma who presented to the ED for complaints of abdominal pain, nausea, vomiting constipation. Patient presented with severe sepsis suspect secondary to pneumonia and acute on chronic asthma in exacerbation with hypoxia requiring supplemental O2. Patient was also found to be in severe rhabdomyolysis with significantly elevated CPK. Patient with lactic acidosis 5.7. Eventually decrease. Was given IV fluids and CPK trended down upon discharge. UA negative. Chest x-ray showing minimal parenchymal changes at the left base. CT abdomen showing minimal airspace disease left lung disease anterior left lung. Chest CT reviewed showing mild bibasilar airspace consolidation, right greater than left. Patient placed on azithromycin and ceftriaxone IV. Methylprednisone 125 mg given in ED. Continue scheduled steroids. Duo nebs scheduled and as needed for wheezing. CBC showing mild leukocytosis with left shift. May be secondary to steroids. Blood cultures negative to date. Legionella negative. Influenza negative. Supplemental O2 as needed, patient required up to 6 L nasal cannula at one point during hospitalizations. On discharge patient is on room air. Walk test performed and did well. Patient also presented with a reducible umbilical hernia with intractable nausea and vomiting and abdominal pain. Incidental finding of right adrenal mass. Constipation as well. Abdomen/ pelvis CT showing marked fatty replacement of the liver. Probable 2.3 cm right adrenal adenoma. Pain control, morphine IV available as needed with [place] as needed during hospitalization pain controlled on discharge. Patient tolerating p.o. intake well abdominal pain, nausea or vomiting resolved upon discharge. Patient educated on follow-up for adrenal adenoma. Patient is asymptomatic at this time. Patient was also found to be in severe hyperkalemia suspect secondary to nausea vomiting versus dehydration with generalized weakness and one fall during hospitalization this is suspect secondary to electrolyte abnormality and rhabdomyolysis. Potassium was 1.6 on presentation. Was given supplementation over the course of the hospitalization and stabilized upon discharge. No reports of any acute events on the monitor. No arrhythmias. Patient with transaminitis and fatty liver LFTs improving. Patient does admit to alcohol use, encourage cessation. Patient also with hypertriglyceridemia: Triglycerides 379. Encourage lifestyle modification including low fat diet and avoidance of alcohol. Elevated random glucose during hospitalization, no reports of any history of diabetes. Likely secondary to steroids. A1c 6.8. Pt Condition on Discharge: Stable Discharge Disposition: Discharge Home Discharge Time: > 30 minutes Discharge Instructions DIET: Follow Instructions for: Heart Healthy Diet Speech Therapy-Diet Recommends: Regular Activities you can perform: Regular-No Restrictions Follow up Referrals: PCP Follow-up - 1 Week Spoke to patient about adrenal mass finding. Asymptomatic at this time. Patient is without insurance and self pay therefore a follow up would be to PCP and if needed nephrology. Patient is understanding. New Medications: Amlodipine (Amlodipine) 5 Mg Tab 5 MG PO DAILY for Blood Pressure Management for 30 Days, #30 TAB 0 Refills Amoxicillin (Amoxicillin) 875 Mg Tab 875 MG PO BID for Infection for 3 Days, #6 TAB 0 Refills Prednisone (Prednisone) 20 Mg Tab 20 MG PO DAILY for 4 for 4 Days, #4 TAB 0 Refills Continued Medications: Albuterol Neb (Albuterol Neb) 0.63 Mg/3 Ml Neb 0.63 MG NEB TID NEB PRN for SHORTNESS OF BREATH, #100 NEBULE 0 Refills Glenna Peters Sep 24, 2017 10:57
[2017-09-24 11:30] VITALS: BP 172/84; PULSE 65; RESP 20; TEMP 96.7; O2SAT 95
[2017-09-24 11:35] LABS: ALBUMIN 3.1 GM/DL (3.4-5.0)
[2017-09-24 11:37] LABS: DIRECT BILIRUBIN ADULT 0.2 MG/DL (0.0-0.2)
[2017-09-24 11:40] LABS: INDIRECT BILIRUBIN 0.1 MG/DL (0.0-0.8); TOTAL BILIRUBIN ADULT 0.3 MG/DL (0.2-1.0); TOTAL PROTEIN 6.7 GM/DL (6.4-8.2)
== END 2017-09-24 13:45 | disposition home or self-care (01) | DRG 871 ==
LOC: PHED 11:00 → PHEDA 14:13 → PH3A 15:26 → PHICU 09-20 12:19 → PH3A 09-23 13:35
PROVIDERS: ADMIT Hospitalist; ATTEND Hospitalist
DX: A41.9 Sepsis, unspecified organism (principal); J18.9 Pneumonia, unspecified organism; E87.2 Acidosis; M62.82 Rhabdomyolysis; E87.3 Alkalosis; T68.XXXA Hypothermia, initial encounter; J45.901 Unspecified asthma with (acute) exacerbation; K76.0 Fatty (change of) liver, not elsewhere classified; E86.0 Dehydration; E87.1 Hypo-osmolality and hyponatremia; R65.20 Severe sepsis without septic shock; R31.29 Other microscopic hematuria; K42.9 Umbilical hernia without obstruction or gangrene; E87.6 Hypokalemia; T38.0X5A Adverse effect of glucocorticoids and synthetic analogues, initial encounter; E27.9 Disorder of adrenal gland, unspecified; F17.210 Nicotine dependence, cigarettes, uncomplicated; K59.00 Constipation, unspecified; R74.0 Nonspecific elevation of levels of transaminase and lactic acid dehydrogenase [LDH]; R09.02 Hypoxemia; E78.1 Pure hyperglyceridemia; E87.5 Hyperkalemia; D35.01 Benign neoplasm of right adrenal gland; X58.XXXA Exposure to other specified factors, initial encounter; W19.XXXA Unspecified fall, initial encounter; Y92.239 Unspecified place in hospital as the place of occurrence of the external cause
CPT/HCPCS: 36600; 70450; 71045; 71250; 74177; 80048; 80053; 80061; 80074; 80076; 81001; 82550; 82552; 82805; 82948; 83036; 83605; 83690; 83735; 84100; 84132; 84133; 84155; 84443; 84703; 85025; 85610; 85730; 87040; 87449; 87804; 94150; 94618; 94640; 94664; 96361; 96374; 96375; J0456; J0696; J1644; J1815; J2270; J2405; J2920; J2930; J3480; J7030; J7050; Q0164; Q9963; Q9967